=== PATIENT | female | born 1985 | race Caucasian/White ===

== ENCOUNTER → 2017-10-09 07:57 | Outpatient (POV) | payer BC, SELFPAY | PROVIDERS: Family Provider Family Medicine; PCP Nurse Practitioner Obstetrics & Gynecology; Visit Provider Dentist | DX: Z00.00 Encounter for general adult medical examination without abnormal findings (principal) ==

== ENCOUNTER → 2018-02-09 11:04 | Outpatient (CLI) | payer BC, SELFPAY ==
--- NOTE | 2018-02-09 11:12 | XR_ITS ---
XR chest 2V HISTORY: ITS.REASON: PALPITATIONS ORDERING PHYSICIAN: Anayeli Worthington PATIENT AGE: 32 years COMPARISON: None FINDINGS: The cardiomediastinal silhouette and pulmonary vascularity are within normal limits. The lungs are clear without infiltrates, suspicious nodules, or pleural effusions. No acute bony abnormalities. IMPRESSION: Negative chest, no acute finding
== END ==
PROVIDERS: PCP Family Medicine; Visit Provider Nurse Practitioner Family
DX: R00.2 Palpitations (principal); R55 Syncope and collapse
CPT/HCPCS: 71046; 93005; 93225; 93226

== ENCOUNTER → 2018-02-13 07:13 | Outpatient (CLI) | payer BC, SELFPAY ==
--- NOTE | 2018-02-13 | CA_ITS ---
PROCEDURE: 2-D M-mode and color Doppler study INDICATIONS FOR THE TEST: Chest pain+ COPD Heart Murmur Tobacco Smoking+ Palpitations Fatigue Syncope+ Edema Hypertension+Diabetes Mellitus Rheumatic Fever SOB VICK Obesity+Hyperlipidemia Family History HD+ Additional History PATIENT INFORMATION HEIGHT: 62 WEIGHT: 250 GENDER: Female B/P: 150/100 2-D/M-MODE INTERPRETATION: 2-D MEASUREMENTS OBSERVED VALUES IN CMS Right Ventricular Dimension (RVDd) 2.7 Interventricular Septum (Thickness)(IVsd) 1.0 Left Ventricular Internal Dimensions(LVIDd) 4.6 Left Ventricular Posterior Wall (Thickness)(LVPWd) 1.0 Aortic Root 2.5 Aortic Cusp Separation 2.0 Left Atrial Dimensions (LAD) 3.6 2D 1. Left atrium is mildly enlarged, left ventricle is normal size, left ventricle wall thickness is upper limit of the normal, there is preserved left ventricular systolic function, visually estimated ejection fraction 55% with no obvious regional wall motion abnormality. 2. The right atrium and right ventricle are qualitatively mildly enlarged with normal contractility. 3. The aortic valve is minimally thickened and fibrosed. 4. The mitral and tricuspid valve are grossly normal. 5. The pulmonic valve is poorly visualized. 6. No significant pericardial effusion noted. DOPPLER INTERROGATION: Doppler interrogation of the aortic, mitral and tricuspid valvular presence of mild mitral and tricuspid regurgitation, tricuspid regurgitation jet velocity is insufficient for calculation of the right ventricular systolic pressure, grade 1 diastolic dysfunction seen with tissue Doppler evidence of raised left atrial pressure. CONCLUSION: 1. Mild biatrial enlargement, normal left ventricular size, visually estimated ejection fraction 55% with no obvious regional wall motion abnormality, grade 1 diastolic dysfunction seen with tissue Doppler evidence of raised left atrial pressure. 2. Mildly enlarged right ventricle with normal contractility. 3. Mild mitral and tricuspid regurgitation 4. No significant pericardial effusion noted.
--- NOTE | 2018-02-13 07:18 | NM_ITS ---
History and Indications: Hypertension, tobacco use, family history, chest pain, palpitation and fatigue Procedure: Patient exercised on Steve protocol 8 minutes and 20 seconds, resting heart rate was 68 bpm resting blood pressure 156/91, with exercise maximum heart rate achieved was 1 minute which is greater than 85% of the maximum predicted heart rate and a blood pressure was 190/86. Test was started due to shortness of breath and fatigue patient denied any complained of chest pain. Patient has good exercise capacity achieved 10.1mets of workload on treadmill, the blood pressure response to exercise was adequate. Electrocardiogram: Resting echocardiogram showed sinus rhythm nonspecific ST-T changes, with exercise there is less than 1.[address] segment depression noted from the baseline EKG. The EKG portion of the exercise Myoview is negative for ischemia. Cardiac stress and resting SPECT images: Cardiac stress and resting SPECT images were obtained using technetium 99 Myoview 32.7 mCi at stress and 9.9 mCi at rest. Gated SPECT further analysis of segmental wall motion and calculation of the ejection fraction also done. Cardiac stress and rest images show uniform myocardial activity without any segmental perfusion abnormality, computer derived ejection fraction is 60% with no obvious regional wall motion abnormality, right ventricle is normal size and contractility. Conclusion: 1. The EKG portion of the exercise Myoview is negative for ischemia. Patient has good exercise capacity achieved 10.1mets of workload on treadmill, the blood pressure response to exercise was adequate, there was no exercise-induced chest discomfort. 2. No obvious scintigraphic evidence of reversible ischemia seen, computer derived ejection fraction is 60% with no regional wall motion abnormality, right ventricle is normal size and contractility. 3. Normal exercise Myoview study.
== END ==
PROVIDERS: Family Provider Family Medicine; PCP Family Medicine; Visit Provider Family Medicine
DX: R55 Syncope and collapse (principal); R00.2 Palpitations
CPT/HCPCS: 78452; 93017; 93306; A9502

== ENCOUNTER → 2020-07-12 12:09 | Outpatient (CLI) | payer BC, SELFPAY ==
[2020-07-14 10:12] LABS: Hep A Ab, IgM Negative (Negative); Hepatitis B Core Antibody IgM Negative (Negative); Hepatitis B Surface Antigen Negative (Negative)
[2020-07-14 10:40] LABS: HIV Screen 4th Generation wRfx Non Reactive (Non Reactive); Hepatitis C Antibody <0.1 s/co ratio (0.0-0.9); Rapid Plasma Reagin Ab Titer Non Reactive (NonRea<1:1)
[2020-07-14 10:41] LABS: HSV 2 IgG, Type Spec <0.91 index (0.00-0.90)
== END ==
PROVIDERS: Visit Provider Nurse Practitioner Obstetrics & Gynecology
DX: Z72.51 High risk heterosexual behavior (principal)
CPT/HCPCS: 36415; 80074; 86592; 86695; 86703; 86790; G0432

== ENCOUNTER → 2020-11-14 11:53 | Outpatient (CLI) | payer OTHER, SELFPAY ==
[2020-11-14 12:21] LABS: Basophils % 0.2 % (0.1-2.0); Eosinophils # 0.3 K/mm3 (0.0-0.4); Eosinophils % 3.6 % (0.1-12.0); Hemoglobin 13.7 g/dL (12.2-16.2); Lymphocytes # 2.1 K/mm3 (0.7-4.5); Mean Corpuscular HGB Conc 33.5 g/dL (31.8-35.4); Mean Corpuscular Hemoglobin 27.9 pg (27.0-31.2); Mean Corpuscular Volume 83.1 fl (81-99); Mean Platelet Volume 7.9 fl (7.4-10.4); Monocytes # 0.5 K/mm3 (0.1-1.0); Monocytes % 5.4 % (1.7-9.3); Neutrophils # 5.6 K/mm3 (1.8-7.8); Neutrophils % 65.7 % (37.0-80.0); Platelet Count 375 K/mm3 (142-424); Red Blood Count 4.93 M/mm3 (4.20-5.40); Red Cell Distribution Width 14.5 % (11.5-17.5); White Blood Count 8.6 K/mm3 (4.8-10.8)
--- NOTE | 2020-11-14 12:50 | CA_ITS ---
APPROVED REPORT EXAM: Comprehensive 2D, Doppler, and color-flow Echocardiogram [employer] Age [employer] Teacher: Anita Carrera RT(R) Ht: 5 ft 2 in Wt: 257lbs BSA: 2.13 BP: 140/96 mmHg Indications: SOA, ex smoker, HTN, preop clearance 2D Dimensions LVOT 2.06 cm (M/F) 1.5-2.5 LA Volume 23.30 mL LA Volume Index 10.99 mL/m2 (M/F) 16-34 M-Mode Dimensions RVDd 2.62 cm (0.9-2.6) LA Diam 3.74 cm (1.9-4.0) LVDd 4.44 cm (3.5-5.7) Ao Diam 2.71 cm (2.0-3.7) LVDs 3.34 cm (3.5-5.7) IVSd 0.87 cm (0.6-1.1) PWd 0.99 cm (0.6-1.1) EF (Teich) 49.30% FS 24.80% EDV (Teich) 89.60 mL ESV (Teich) 45.40 mL LV Diastology E Decel Time 163.00 (160-240 msec) E/A Ratio 1.7 MED E' 11.10 (< 7 cm/sec) E'/MED E' Ratio 10.73 (>14) LAT E' 14.50 (<10 cm/sec) E/LAT E' Ratio 8.21 (>14) Mitral Valve MV E Max Nicholas. 119.00 (40-130 cm/s) MV A Velocity 69.00 (40-130 cm/s) E/A Ratio 1.71 MV Decel. Time 163.00 (160-240 ms) MV PHT 48.00 ms Tricuspid Valve TR P. Velocity 138.00 cm/s Left Ventricle Left atrium is normal size, left ventricle is normal size, there is no concentric left ventricular hypertrophy, visually estimated ejection fraction 55% with no regional wall motion abnormality, diastolic parameters are within normal range. Right Ventricle Right atrium and right ventricle are normal size and contractility. Aortic Valve Aortic valve is grossly normal, there is no aortic stenosis or aortic insufficiency. Mitral Valve Mitral valve is grossly normal, there is trace mitral regurgitation. Tricuspid Valve Tricuspid valve grossly normal, there is trace tricuspid regurgitation, tricuspid regurgitation jet velocity is inadequate for calculation of the right ventricular systolic pressure. Pulmonic Valve Pulmonic valve is poorly visualized. Great Vessels Aortic root is normal size. Pericardium No significant pericardial effusion noted. Conclusion 1. Normal left ventricular size, preserved left ventricular systolic function, visually estimated ejection fraction 55% with no regional wall motion abnormality, diastolic parameters are within normal range. 2. Trace mitral and tricuspid regurgitation. 3. No significant pericardial effusion noted. Electronically signed by : Dayo Vuong, 11/14/2020 18:46:31
[2020-11-14 13:09] LABS: Hemoglobin A1C 5.1 % (4.0-6.0)
[2020-11-14 13:28] LABS: Alanine Aminotransferase 19 U/L (12-78); Albumin Level 4.5 g/dl (3.5-5.0); Albumin/Globulin Ratio 1.5 (1.1-1.8); Alkaline Phosphatase 51 U/L (38-126); Anion Gap 11.4 mEq/L (5-15); Aspartate Amino Transferase 24 U/L (14-36); Bilirubin,Total 0.5 mg/dl (0.2-1.3); Blood Urea Nitrogen 15 mg/dl (7-17); Calcium 9.3 mg/dl (8.4-10.2); Carbon Dioxide 27 mmol/L (22.0-30.0); Chloride 107 mmol/L (98-107); Chol/HDL Ratio 3.9 (1-3.5); Cholesterol 185 mg/dl (140-200); Estimated Glomerular Filt Rate 82 ml/min (>60); GFR (African American) 99 ML/MIN (>60); Glucose 100 mg/dl (74-100); HDL Cholesterol 48 mg/dl (40-60); Potassium 4.4 mmoL/L (3.5-5.1); Sodium 141 mmol/L (136-145); Total Protein,Serum 7.5 g/dl (6.3-8.2); Triglycerides 70 mg/dl (30-150); VLDL Cholesterol 14 mg/dL (0-40)
[2020-11-14 13:39] LABS: Direct LDL Cholesterol 109.91 mg/dL (100-129)
[2020-11-14 13:45] LABS: Free Thyroxine Index 3.5 ug/dL (5.93-13.13); Triiodothryronine (T3) Uptake 32 % (23.5-40.5)
[2020-11-14 13:58] LABS: Thyroid Stimulating Hormone 0.68 uIU/mL (0.465-4.68)
== END ==
PROVIDERS: PCP Family Medicine; Visit Provider Nurse Practitioner Family
DX: Z01.810 Encounter for preprocedural cardiovascular examination (principal); R06.02 Shortness of breath; I10 Essential (primary) hypertension
CPT/HCPCS: 36415; 80053; 80061; 83036; 84436; 84443; 84479; 85025; 93306

== ENCOUNTER → 2020-11-22 11:13 | Outpatient (CLI) | payer OTHER, SELFPAY ==
--- NOTE | 2020-11-22 11:13 | XR_ITS ---
PROCEDURE: XR CHEST 2V CLINICAL HISTORY: Dyspnea COMPARISON: CR CXR2V XR chest 2V from 02/09/2018 FINDINGS: The cardiomediastinal silhouette and pulmonary vascularity are within normal limits. The lungs are clear without infiltrates, suspicious nodules, or pleural effusions. Stable 5 mm nodular opacity is present in the left perihilar region. The remaining lungs are clear. On the lateral view there is a nodular opacity overlying T7 vertebral body which may correspond to the perihilar nodular density on the left. No acute bony findings. IMPRESSION: No acute findings. Dictated by: Tyler Trimble MD 11/22/2020 11:30 Tyler Trimble MD in [place] 11/22/2020 11:30
== END ==
PROVIDERS: PCP Family Medicine; Visit Provider Internal Medicine Pulmonary Disease
DX: R06.00 Dyspnea, unspecified (principal)
CPT/HCPCS: 71046

== ENCOUNTER → 2020-12-18 09:52 | Outpatient (CLI) | payer OTHER, SELFPAY ==
[2020-12-18 10:45] VITALS: PULSE 60; PULSE 61
== END ==
PROVIDERS: PCP Family Medicine; Visit Provider Internal Medicine Pulmonary Disease
DX: R06.00 Dyspnea, unspecified (principal)
CPT/HCPCS: 94060; 94618; 94640; 94726; 94729

== ENCOUNTER → 2021-04-09 15:43 | Outpatient (CLI) | payer OTHER, SELFPAY ==
--- NOTE | 2021-04-09 15:44 | US_ITS ---
PROCEDURE: US TRANSVAGINAL CLINICAL INDICATION: Heavy bleeding with irregular periods COMPARISON: No exams were available for comparison FINDINGS: There are several small nabothian cysts in the cervix. The uterus is normal in size and shows homogeneous echogenicity except for a small hypoechoic lesion near the fundus measuring 0.8 x 0.5 by 0.8 cm with faint homogeneous internal echoes likely a fibroid. The endometrial echo appears normal. Both ovaries are normal in size, there is a dominant cyst left ovary measuring 2.6 x 1 point by 1.4 cm. The right ovary appears normal. There is no cul-de-sac fluid. IMPRESSION: Several nabothian cysts in the cervix and probable functional cyst right ovary and likely small myometrial fibroid Dictated by: Dr. Srinath Luna MD 04/11/2021 08:39 Dr. Srinath Luna MD in [place] 04/11/2021 08:39
== END ==
PROVIDERS: PCP Family Medicine; Visit Provider Nurse Practitioner Obstetrics & Gynecology
DX: N92.1 Excessive and frequent menstruation with irregular cycle (principal)
CPT/HCPCS: 76830

== ENCOUNTER → 2021-04-28 10:05 | Outpatient (CLI) | payer OTHER, SELFPAY | PROVIDERS: Visit Provider Nurse Practitioner Obstetrics & Gynecology | DX: Z20.822 Contact with and (suspected) exposure to COVID-19 (principal) | CPT/HCPCS: C9803; U0003; U0005 ==

== ENCOUNTER 2021-04-30 06:03 | Day surgery (SDC) | payer OTHER, SELFPAY ==
[2021-04-24 14:24] VITALS: BMI 41.4
[2021-04-30] VITALS (10 sets, daily range): BP systolic 107–140; BP diastolic 65–86; PULSE 70–97; RESP 12–18; TEMP 36.4–38; O2SAT 93–97
[2021-04-30 06:29] LABS: Urine Pregnancy, HCG Qual. Negative (Negative)
[2021-04-30 06:42] LABS: Basophils % 0.3 % (0.1-2.0); Eosinophils # 0.2 K/mm3 (0.0-0.4); Eosinophils % 2.4 % (0.1-12.0); Hematocrit 42.1 % (37.0-47.0); Hemoglobin 13.9 g/dL (12.2-16.2); Lymphocytes # 1.9 K/mm3 (0.7-4.5); Lymphocytes % 22.3 % (10-50); Mean Corpuscular HGB Conc 32.9 g/dL (31.8-35.4); Mean Corpuscular Volume 85.1 fl (81-99); Mean Platelet Volume 9.5 fl (7.4-10.4); Monocytes # 0.5 K/mm3 (0.1-1.0); Monocytes % 5.5 % (1.7-9.3); Neutrophils # 5.9 K/mm3 (1.8-7.8); Neutrophils % 69.5 % (37.0-80.0); Platelet Count 331 K/mm3 (142-424); Red Blood Count 4.95 M/mm3 (4.20-5.40); White Blood Count 8.5 K/mm3 (4.8-10.8)
[2021-04-30 06:49] LABS: Anion Gap 9.6 mEq/L (5-15); Blood Urea Nitrogen 12 mg/dl (7-17); Calcium 9.8 mg/dl (8.4-10.2); Carbon Dioxide 28 mmol/L (22.0-30.0); Chloride 106 mmol/L (98-107); Creatinine Clearance Estimated 80 mL/min (50-200); Estimated Glomerular Filt Rate 81 ml/min (>60); GFR (African American) 98 ML/MIN (>60); Glucose 115 mg/dl (74-100); Potassium 3.6 mmoL/L (3.5-5.1); Sodium 140 mmol/L (136-145)
--- NOTE | 2021-04-30 06:59 | HMH.ANESCL ---
[facility] Anesthesia Checklist - Patient Identification Patient Identification: Arm Band, Verbal (Name & ) - Structural Data Admitted From: Home Planned Operative Procedure/s: Hysteroscopy D&C Consent for Planned Operative Procedure(s) Verified: Yes Verified Documents: Surgical Consent - NPO Status Verified Time NPO: 00:00 - Chart Verification Results Verified: CBC, HCG - Additional verifications Anesthesia Reactions: No Hx Blood Transfusions: No Blood Transfusion Reaction: No - Cardiovascular Assessment Heart Sounds: S1 & S2 - Airway Assessment C-Spine Mobility Assessed: Yes TMJ Mobility Assessed: Yes Dentition: Good Dentition - Neurological Assessment Level of Consciousness: Awake, Alert, Appropriate - Anesthesia Plan ASA Class: II Anesthesia Type: General [facility] History I have reviewed the patient's past medical history: Yes Medical History: Reports:: Depression, Hypertension Denies:: Cancer, Diabetes Mellitus Type 1, Diabetes Mellitus Type 2, Internal Pacemaker, MRSA, Seizures *Have you ever received a pneumonia vaccine?: No *Have you received a flu vaccine this season?: No Other Medical History: Denies: Blood Transfusion Reaction Anesthesia experience/problems:: none Laterality Cases: Bilateral: Tonsillectomy, Other Other Surgeries: Yes: Cholecystectomy, , Tubal Ligation, Other. No: Pacemaker Amputation: No Fractures: No - *Social History Last grade of school completed: High school graduate Smoking Status: Current every day smoker Tobacco Type: cigarettes # Packs/Day (cigarettes): 1 Alcohol Intake: current Alcohol Intake Frequency:: holidays/special occasions only Substance Use Type: denies use *Occupational Status:: employed Housing: house *Travel in the last 8 weeks: None - Psychiatric History Pschychiatric History:: Reports:: Depression Family Hx:: Diabetes, Hypertension
--- NOTE | 2021-04-30 08:05 | HMH.OPNOTE ---
Date of procedure: 04/30/21 Pre-op Diagnosis:: Menorrhagia Post-op Diagnosis:: Menorrhagia Procedure performed:: Hysteroscopy, dilation curettage, NovaSure ablation Surgeon:: Angel Tipton MD ORTHOPEDIC SHOE FITTER:: Chon Franklin Anesthesia: LMA Estimated blood loss (mL): 50 Clinical Note:: She is a 35-year-old lady who complains of extremely heavy periods. She has tried control pills. After having discussed the risks and benefits we elected perform a hysteroscopy, D&C and NovaSure ablation. Endometrial biopsy in my office was negative. Operative findings:: An anteverted somewhat bulky uterus. The uterus sounded to 9 cm. The width was 4 and the endometrial cavity length was 6.5 cm. The endometrial cavity appeared somewhat lush and she was on her period so it was irregular Operative note:: She was taken to the operating room where LMA anesthesia was found be adequate. She was prepped and draped in the normal sterile fashion in the lithotomy position. A weighted speculum was placed in the vagina and the anterior lip of the cervix was grasped with a tenaculum. The cervix was then dilated to approximately 6 mm. I then inserted a hysteroscope into the uterine cavity and the findings were as previously dictated. I then performed a gentle curettage with a medium curette. I then sounded the uterus and determine the length of the uterus. I then inserted the NovaSure device and determine the width of the endometrial cavity. The length of the cavity was 6.5 cm and the width was 4.3 cm. This was placed into the NovaSure device. I then ran the device through its program. I further inspected the endometrial cavity and was found to be completely charred. I then injected 30 cc of 0.5% ropivacaine at the 3:00, 5:00, 7:00, and 9:00 positions of the cervix. She tolerated procedure well and was taken to the recovery room in excellent condition. All sponge and instrument counts were correct. The estimated blood loss was less than 50 cc. Condition: stable Disposition: PACU Specimens:: Endometrial curettings Complications:: None
--- NOTE | 2021-04-30 08:10 | P.PN_ITS ---
[facility] Anesthesia Record Part I Intake, IV Amount: 500 Estimated blood loss (mL): 25 Urine output (mL): 0 Blood Pressure: 122/70 SaO2: 95 Pulse Rate: 73 Respiratory Rate: 12 Temperature: 99.2 F Patient is:: Awake, Stable Stable to PACU at:: 08:05
--- NOTE | 2021-05-02 20:01 | P.PN_ITS ---
[facility] Anesthesia Record Part II Discharge Time: 08:44 Destination: home PACU nurse assessment reviewed?: Yes Patient Condition:: Good Anesthesia Complications:: None none Swallowing reflex intact?: Yes Cyanosis?: No Blood Pressure: 115/65 Pulse Rate: 97 Temperature: 97.7 F Mental Status: Alert & Oriented Pain level:: 0 Nausea and/or vomitting:: None Intake, IV Amount: 0
[2021-05-02 20:02] VITALS: BP 115/65; PULSE 97; TEMP 36.5
== END 2021-04-30 09:01 | disposition home or self-care (01) ==
LOC: OR 06:04
PROVIDERS: PCP Family Medicine; Visit Provider Nurse Practitioner Obstetrics & Gynecology
PROC: 0U5B8ZZ Destruction of Endometrium, Via Natural or Artificial Opening Endoscopic (ICD-10-PCS; CPT 58563; principal; 2021-04-30 07:30)
DX: N92.1 Excessive and frequent menstruation with irregular cycle (principal); F32.9 Major depressive disorder, single episode, unspecified; I10 Essential (primary) hypertension; Z90.49 Acquired absence of other specified parts of digestive tract; Z83.3 Family history of diabetes mellitus; Z82.49 Family history of ischemic heart disease and other diseases of the circulatory system; Z88.0 Allergy status to penicillin; Z88.6 Allergy status to analgesic agent; Z91.018 Allergy to other foods; Z79.899 Other long term (current) drug therapy
CPT/HCPCS: 58563; 80048; 81025; 85025; 96374; J2405

== ENCOUNTER → 2022-08-08 14:41 | Outpatient (CLI) | payer OTHER, SELFPAY ==
--- NOTE | 2022-08-08 | XR_ITS ---
FINAL REPORT CLINICAL HISTORY: cough congestion soa COMPARISON: 11/22/2020 FINDINGS: Two views of the chest were obtained. The heart size and pulmonary vascularity are within normal limits. The mediastinum is normal. There is mild left opacity, which may represent atelectasis or pneumonia. Right lung bases clear. There is no pneumothorax. The bony thorax is intact. IMPRESSION: Mild left opacity, may represent atelectasis or pneumonia. Reviewed, Interpreted and Dictated by Karan Kahn III, MD Transcribed by Leydi Gomes Authenticated and . [facility]
== END ==
PROVIDERS: PCP Family Medicine; Visit Provider Physician Assistant
DX: J40 Bronchitis, not specified as acute or chronic (principal)
CPT/HCPCS: 71046

== ENCOUNTER → 2022-08-15 10:06 | Outpatient (CLI) | payer OTHER, SELFPAY ==
--- NOTE | 2022-08-15 | XR_ITS ---
FINAL REPORT CLINICAL HISTORY: PNEUMONIA vape COMPARISON: 08/08/2022 FINDINGS: PA and lateral views of the chest were obtained. The cardiac and mediastinal silhouettes are within normal limits. The lungs are clear. There is no pleural effusion or pneumothorax. No acute osseous abnormality is identified. IMPRESSION: No radiographic evidence of acute cardiac or pulmonary disease. Reviewed, Interpreted and Dictated by Marli Jacinto MD Transcribed by Leydi Gomes Authenticated and . [facility]
== END ==
PROVIDERS: PCP Family Medicine; Visit Provider Physician Assistant
DX: J18.9 Pneumonia, unspecified organism (principal)
CPT/HCPCS: 71046

== ENCOUNTER → 2022-09-30 11:57 | Outpatient (CLI) | payer OTHER, SELFPAY ==
--- NOTE | 2022-09-30 12:22 | ECG_ITS ---
APPROVED REPORT Exam: Resting ECG HR:53 bpm ECG Measurements Heart Rate 53 AXES CO 161 P 39 QRSd 88 QRS 60 QT 457 T 7 QTc 439 Conclusion SINUS BRADYCARDIA WITH SINUS ARRHYTHMIA BORDERLINE ECG UNCONFIRMED REPORT Electronically signed by : Lg Olmos MD 09/30/2022 20:29:37
[2022-09-30 12:52] LABS: Basophils % 0.5 % (0.1-2.0); Eosinophils # 0.2 K/mm3 (0.0-0.4); Eosinophils % 3.3 % (0.1-12.0); Hematocrit 46.4 % (37.0-47.0); Hemoglobin 15.4 g/dL (12.2-16.2); Lymphocytes # 2.6 K/mm3 (0.7-4.5); Lymphocytes % 35.1 % (10-50); Mean Corpuscular HGB Conc 33.3 g/dL (31.8-35.4); Mean Corpuscular Hemoglobin 29.6 pg (27.0-31.2); Mean Platelet Volume 8.4 fl (7.4-10.4); Monocytes # 0.5 K/mm3 (0.1-1.0); Monocytes % 6.2 % (1.7-9.3); Neutrophils % 54.9 % (37.0-80.0); Platelet Count 372 K/mm3 (142-424); Red Blood Count 5.21 M/mm3 (4.20-5.40); Red Cell Distribution Width 13.9 % (11.5-17.5); White Blood Count 7.3 K/mm3 (4.8-10.8)
[2022-09-30 13:03] LABS: Hemoglobin A1C 5.2 % (4.0-6.0)
[2022-09-30 13:14] LABS: Chloride 103 mmol/L (98-107); Potassium 4.3 mmoL/L (3.5-5.1); Sodium 141 mmol/L (136-145)
[2022-09-30 13:16] LABS: Blood Urea Nitrogen 9 mg/dl (7-17); Estimated Glomerular Filt Rate 81 ml/min (>60); GFR (African American) 98 ML/MIN (>60)
[2022-09-30 13:17] LABS: Alanine Aminotransferase 27 U/L (12-78); Albumin Level 4.4 g/dl (3.5-5.0); Albumin/Globulin Ratio 1.4 (1.1-1.8); Alkaline Phosphatase 50 U/L (38-126); Anion Gap 13.3 mEq/L (5-15); Aspartate Amino Transferase 24 U/L (14-36); Bilirubin,Total 0.5 mg/dl (0.2-1.3); Calcium 8.8 mg/dl (8.4-10.2); Carbon Dioxide 29 mmol/L (22.0-30.0); Cholesterol 190 mg/dl (140-200); Globulin 3.1 g/dL (1.3-3.2); Glucose 89 mg/dl (74-100); Iron 70 ug/dL (37-170); Total Protein,Serum 7.5 g/dl (6.3-8.2); Triglycerides 91 mg/dl (30-150); VLDL Cholesterol 18 mg/dL (0-40)
[2022-09-30 13:18] LABS: Chol/HDL Ratio 3.6 (1-3.5); HDL Cholesterol 53 mg/dl (40-60)
[2022-09-30 13:29] LABS: Direct LDL Cholesterol 100.52 mg/dL (100-129); Intact Parathyroid Hormone 90.5 pg/mL (7.5-53.5)
[2022-09-30 13:35] LABS: 25-OH Vitamin D, Total 18.8 ng/mL (30-100)
[2022-09-30 13:42] LABS: Total Iron Binding Capacity 317 ug/dL (265-497)
[2022-09-30 13:49] LABS: Thyroid Stimulating Hormone 1.12 uIU/mL (0.465-4.68)
[2022-10-03 12:52] LABS: Ferritin 38.9 ng/ml (6.24-137)
[2022-10-03 23:51] LABS: Methylmalonic Acid 137 nmol/L (0-378)
[2022-10-04 17:32] LABS: Vitamin B1 134.6 nmol/L (66.5-200.0); Vitamin E Alpha Tocopherol 9.8 mg/L (5.9-19.4); Vitamin E Gamma Tocopherol 1.9 mg/L (0.7-4.9)
== END ==
PROVIDERS: PCP Family Medicine; Visit Provider Nurse Practitioner Family
DX: E66.9 Obesity, unspecified (principal); Z68.41 Body mass index [BMI] 40.0-44.9, adult
CPT/HCPCS: 36415; 80053; 80061; 82131; 82306; 82728; 82746; 83036; 83540; 83550; 83970; 84425; 84443; 84446; 84590; 85025; 93005

== ENCOUNTER 2025-01-17 10:48 | Outpatient (CLI) | payer OTHER, SELFPAY ==
--- OUTSIDE RECORDS SUMMARY | 2025-01-17 10:50 | XMS_ITS | Clinical Summary ---
Author Organization [employer] ([place], [place], [place], [place]) Address [address] [place] [address] Care Team Providers Care Marketing Professional Name Role Phone Unavailable Primary Care Provider Unavailabl e Social History Tobacco Use Types Packs/Day Years Used Date Smoking Tobacco: Never Assessed Food Insecurity Answer Date Recorded Food run out past 12 months Not on file 02/2024 Food did not last past 12 months Not on file 01/23/2024 Employment Answer Date Recorded Help finding and keeping a job Not on file 0 01/23/2024 Family and Community Support Answer Nolan e Recorded Help with Day to Day Activities Not on file 01/23/2024 Feeling Lonely or Isolated Not on file 01/22 Educational Attainment Answer Date Osman rded Speak language other than Emirati at home Not on file 01/23/2024 Want help with school or training Not on file 01/23/2024 Substance Use Answer Date Recorded Used prescription meds for non-medical reasons N ot on file 01/23/2024 Used illegal drugs past 12 months Not on file 01/23/2024 Comments Unknown Sex and Gender Information Value Date Recorded Sex Assigned at Not on file Legal Sex Female 12:26 PM CDT Gender Identity Not on file Sexual Orientation Not on file Plan of Treatment Health Maintenance Due Date Last Done Comments Depression Screening (12+) 1996 Tobacco Cessation Counseling and Screening (12+) 1996 HIV Screening 11/26/1999 Hepatitis C Screening 2002 DTAP/TDAP/TD VACCINES (1 - Tdap) 11/26/2003 Pap Smear 2005 COVID-19 VACCINE ( - 2023-2 5 season) 2024 Breast Cancer Screening 2024 Influenza Vaccine (#1) 2025 Pneumococcal Vaccine: 0-49 Years Aged Out No longer eligible based on patient's age to complete this topic Insurance AETNA [facility]
--- OUTSIDE RECORDS SUMMARY | 2025-01-17 10:50 | XMS_ITS | Referral Summary ---
Author Organization [employer] ([place], [place]) Address [address] [place] [address] Care Team Providers Care Truck Service Manager Name Role Phone Unavailable Primary Care Provider [...] Date Osman rded Speak language other than Kyrgyz at home Not on file 01/23/2024 Want [...] Orientation Not on file Plan of Treatment Not on file Insurance AETNA [facility]
--- OUTSIDE RECORDS SUMMARY | 2025-01-17 10:50 | XMS_ITS | Encounter Summary ---
Author Organization [employer] ([place], [place], [place], [place]) Address [address] [place] [address] Care Team Providers Care Surety Bond Agent Name Role Phone Unavailable Primary Care Provider Unavailabl e Reason for Referral * Consultation (Routine) - Canceled Specialty Diagnoses / Procedures Referred By Dwayne t Referred To Contact Behavioral Health Diagnoses ADD (attention deficit disorder) without hyperactivity Eugenia Rocha APRN [address] [place] [address] Phone: tel: Leydi Abdalla, [place] [address] [place] [address] Phone: tel: fax: Referral ID Status Reason Start Date Expiration Date Visits Requested Visits Authorized [id number] Canceled Specialty Services Required 01/23/2024 01/22/2025 1 1 Encounter Details Date Type Department Care Team (Late st Contact Info) Description 01/23/2024 Outside Orders [facility] Central Scheduling [address] [place] [address] Eugenia Rocha APRN [address] [place] [address] ADD (attention deficit disorder) without hyperactivity (Primary Dx) Social History Tobacco Use Types Packs/Day Years [...] Date Osman rded Speak language other than Russian at home Not on file 01/23/2024 Want [...] on file Sexual Orientation Not on file documented as of this encounter Plan of Treatment Scheduled Referrals Name Type Priority Associated Diagnoses Orde r Schedule Ambulatory referral to Behavioral Health Outpatient Referral Routine ADD (attention deficit disorder) without hyperactivity Expected: 01/23/2024, Expires: 01/22/2025 documented as of this encounter Visit Diagnoses Diagnosis ADD (attention deficit disorder) without hyperactivity- Primary Attention deficit disorder without mention of hyperactivity documented in this encounter
[2025-01-17 12:49] LABS: Hepatitis C Ab Qual. W/ RFX NEGATIVE (Negative)
[2025-01-17 14:25] LABS: RPR W/RFX Titers Nonreactive (Nonreactive)
[2025-01-18 07:14] LABS: Hepatitis B Surface Antigen Negative (Negative)
[2025-01-19 17:14] LABS: HSV-1 DNA Negative (Negative); HSV-2 DNA Negative (Negative)
[2025-01-20 13:44] LABS: Bacterial Vaginosis Associated 0
== END 2025-01-17 23:59 | disposition home or self-care (01) ==
PROVIDERS: PCP Family Medicine; Visit Provider Nurse Practitioner Obstetrics & Gynecology
DX: N89.8 Other specified noninflammatory disorders of vagina (principal); Z72.51 High risk heterosexual behavior
CPT/HCPCS: 36415; 86592; 86803; 87340; 87389; 87529; 87798; 87801

== ENCOUNTER 2025-01-26 09:33 | Outpatient (CLI) | payer OTHER, SELFPAY ==
--- OUTSIDE RECORDS SUMMARY | 2025-01-26 09:39 | XMS_ITS | Encounter Summary ---
Author Organization [employer] ([place], [place], [place], [place]) Address [address] [place] [address] Care Team Providers Care Technical Support Agent Name Role Phone Unavailable Primary Care Provider Unavailabl e Encounter Details Date Type Department Care Team (Late st Contact Info) Description 01/23/2024 Outside Orders [facility] Central Scheduling [address] [place] [address] Eugenia Rocha APRN [address] [place] [address] ADD (attention deficit disorder) without [...] Date Osman rded Speak language other than Palestinian at home Not on file 01/23/2024 Want [...] as of this encounter Plan of Treatment Not on file documented as of this encounter Visit Diagnoses Diagnosis ADD (attention deficit disorder) without hyperactivity- Primary Attention deficit disorder without mention of hyperactivity documented in this encounter
--- OUTSIDE RECORDS SUMMARY | 2025-01-26 09:39 | XMS_ITS | Clinical Summary ---
Author Organization [employer] ([place], [place], [place], [place]) Address [address] [place] [address] Care Team Providers Care Smt Technician Name Role Phone Unavailable Primary Care Provider [...] Date Osman rded Speak language other than British Virgin Islander at home Not on file 01/23/2024 Want [...] age to complete this topic Insurance AETNA [facility]
--- OUTSIDE RECORDS SUMMARY | 2025-01-26 09:39 | XMS_ITS | Referral Summary ---
Author Organization [employer] ([place], [place], [place], [place]) Address [address] [place] [address] Care Team Providers Care Lead Clinical Research Coordinator Name Role Phone Unavailable Primary Care Provider [...] Date Osman rded Speak language other than Azerbaijani at home Not on file 01/23/2024 Want [...] of Treatment Not on file Insurance AETNA [facility]
[2025-01-26 10:07] LABS: Hematocrit 44.5 % (37.0-47.0); Hemoglobin 15.0 g/dL (12.2-16.2); Immature Granulocytes % 0.4 %; Mean Corpuscular HGB Conc 33.7 g/dL (31.8-35.4); Mean Corpuscular Hemoglobin 31.1 pg (27.0-31.2); Mean Corpuscular Volume 92.3 fl (81-99); Nucleated Red Blood Cells % 0 %; Platelet Count 337 K/mm3 (142-424); Red Blood Count 4.82 M/mm3 (4.20-5.40); Red Cell Distribution Width-SD 45.6 fL; White Blood Count 9.9 K/mm3 (4.8-10.8)
[2025-01-26 10:49] LABS: Albumin Level 4.2 g/dl (3.5-5.0); Chloride 103 mmol/L (98-107); Sodium 140 mmol/L (136-145)
[2025-01-26 10:50] LABS: Potassium 4.4 mmoL/L (3.5-5.1)
[2025-01-26 10:52] LABS: Alanine Aminotransferase 16 U/L (12-78); Albumin/Globulin Ratio 1.6 (1.1-1.8); Anion Gap 12.4 mEq/L (5-15); Aspartate Amino Transferase 24 U/L (14-36); Blood Urea Nitrogen 11 mg/dl (7-17); Carbon Dioxide 29 mmol/L (22.0-30.0); Creatinine,Serum 0.70 mg/dl (0.52-1.04); Estimated Glomerular Filt Rate 93 ml/min (>60); GFR (African American) 112 ML/MIN (>60); Globulin 2.7 g/dL (1.3-3.2); Total Protein,Serum 6.9 g/dl (6.3-8.2)
[2025-01-26 10:53] LABS: Alkaline Phosphatase 50 U/L (38-126); Bilirubin,Total 0.7 mg/dl (0.2-1.3); Calcium 9.4 mg/dl (8.4-10.2); Cholesterol 166 mg/dl (140-200); Glucose 94 mg/dl (74-100); HDL Cholesterol 62 mg/dl (40-60); Triglycerides 61 mg/dl (30-150)
[2025-01-26 11:15] LABS: 25-OH Vitamin D, Total 24.3 ng/mL (30-100)
== END 2025-01-26 23:59 | disposition home or self-care (01) ==
LOC: LAB 09:34
PROVIDERS: PCP Family Medicine; Visit Provider Nurse Practitioner Obstetrics & Gynecology
DX: Z01.419 Encounter for gynecological examination (general) (routine) without abnormal findings (principal); I10 Essential (primary) hypertension
CPT/HCPCS: 36415; 80053; 80061; 82306; 85025

== ENCOUNTER 2025-01-31 12:27 | Outpatient (CLI) | payer OTHER, SELFPAY ==
--- OUTSIDE RECORDS SUMMARY | 2025-01-31 12:31 | XMS_ITS | Encounter Summary ---
Author Organization [employer] ([place], [place], [place], [place]) Address [address] [place] [address] Care Team Providers Care Equipment Operator [employer] Name Role Phone Unavailable Primary Care Provider Unavailabl e Encounter Details Date Type Department Care Team (Late st Contact Info) Description 01/23/2024 Outside Orders [facility] Central Scheduling [address] [place] [address] Eugenia Rocha APRN [address] [place] [address] ADD (attention deficit disorder) without [...] Date Osman rded Speak language other than Iranian at home Not on file 01/23/2024 Want [...]
--- OUTSIDE RECORDS SUMMARY | 2025-01-31 12:31 | XMS_ITS | Clinical Summary ---
Author Organization [employer] ([place], [place], [place], [place]) Address [address] [place] [address] Care Team Providers Care Teamcenter Consultant Name Role Phone Unavailable Primary Care Provider [...] Date Osman rded Speak language other than Belizean at home Not on file 01/23/2024 Want [...] of Treatment Not on file Insurance [facility]ETNA [facility]
--- NOTE | 2025-01-31 12:55 | MM_ITS ---
PROCEDURE INFORMATION: Exam: Bilateral Diagnostic Breast Tomosynthesis Radiologist Consultation Exam date and time: 01/31/2025 12:56 PM Age: 39 years old Clinical indication: Bilateral breast palpable lumps; Additional info: Routine screening/ lumps in breasts. Patient wanted this read lizeth , she has an appt with surgeon on fri to discuss results. The area marked on left breast with a mole marker is a small skin cyst. Patient said doctor felt multiple areas in each breast during exam, no distinct mass , just multiple lumps TECHNIQUE: Imaging protocol: Bilateral Diagnostic tomosynthesis and 2D mammography including computer-aided detection (CAD) when performed. Unilateral or bilateral exam. This study was interpreted in real time.The patient received the results. COMPARISON: No relevant prior studies available. FINDINGS: MAMMOGRAPHY: Breast composition: The breasts are almost entirely fatty. Breast mammogram findings: There is no stellate mass, architectural distortion or suspicious microcalcifications in either breast to suggest malignancy. No skin thickening or axillary adenopathy. IMPRESSION: Patient to return for targeted sonography over bilateral palpable abnormalities ASSESSMENT: BI-RADS Category 0: Incomplete- Need Additional Imaging Evaluation
== END 2025-01-31 23:59 | disposition home or self-care (01) ==
LOC: RAD 12:27
PROVIDERS: PCP Family Medicine; Visit Provider Nurse Practitioner Obstetrics & Gynecology
DX: Z12.31 Encounter for screening mammogram for malignant neoplasm of breast (principal); N63.10 Unspecified lump in the right breast, unspecified quadrant; N63.20 Unspecified lump in the left breast, unspecified quadrant; R92.313 Mammographic fatty tissue density, bilateral breasts
CPT/HCPCS: 77062; 77066; G0279

== ENCOUNTER 2025-02-07 08:50 | Outpatient (CLI) | payer OTHER, SELFPAY ==
--- OUTSIDE RECORDS SUMMARY | 2025-02-07 09:03 | XMS_ITS | Encounter Summary ---
Author Organization [employer] ([place], [place], [place], [place]) Address [address] [place] [address] Care Team Providers Care Cutter First Name Role Phone Unavailable Primary Care Provider Unavailabl e Encounter Details Date Type Department Care Team (Late st Contact Info) Description 01/23/2024 Outside Orders [facility] Central Scheduling [address] [place] [address] Eugenia Rocha APRN [address] [place] [address] ADD (attention deficit disorder) without [...] Date Osman rded Speak language other than Bhutanese at home Not on file 01/23/2024 Want [...]
--- OUTSIDE RECORDS SUMMARY | 2025-02-07 09:03 | XMS_ITS | Referral Summary ---
Author Organization [employer] ([place], [place], [place], [place]) Address [address] [place] [address] Care Team Providers Care Performance Reporter Name Role Phone Unavailable Primary Care Provider [...] Date Osman rded Speak language other than Malawian at home Not on file 01/23/2024 Want [...] of Treatment Not on file Insurance AETNA [facility]
--- OUTSIDE RECORDS SUMMARY | 2025-02-07 09:03 | XMS_ITS | Clinical Summary ---
Author Organization [employer] ([place], [place], [place], [place]) Address [address] [place] [address] Care Team Providers Care Teacher Education Director Name Role Phone Unavailable Primary Care Provider [...] Date Osman rded Speak language other than [place] at home Not on file 01/23/2024 Want [...] of Treatment Not on file Insurance AETNA [facility]
== END 2025-02-07 23:59 ==
LOC: RAD 08:50
PROVIDERS: PCP Family Medicine; Visit Provider Surgery
DX: N60.02 Solitary cyst of left breast (principal)
CPT/HCPCS: 76641

== ENCOUNTER 2025-02-15 09:53 | Outpatient (CLI) | payer OTHER, SELFPAY ==
[2025-02-15 07:46] VITALS: BMI 33.5
--- OUTSIDE RECORDS SUMMARY | 2025-02-15 10:27 | XMS_ITS | Clinical Summary ---
Author Organization [employer] ([place], [place], [place], [place]) Address [address] [place] [address] Care Team Providers Care Wheel Filler Name Role Phone Unavailable Primary Care Provider [...] Date Osman rded Speak language other than Cambodian at home Not on file 01/23/2024 Want [...] of Treatment Not on file Insurance AETNA [facility]
--- OUTSIDE RECORDS SUMMARY | 2025-02-15 10:27 | XMS_ITS | Encounter Summary ---
Author Organization [employer] ([place], [place], [place], [place]) Address [address] [place] [address] Care Team Providers Care Outdoor Adventure Leader Name Role Phone Unavailable Primary Care Provider Unavailabl e Encounter Details Date Type Department Care Team (Late st Contact Info) Description 01/23/2024 Outside Orders [facility] Central Scheduling [address] [place] [address] Eugenia Rocha APRN [address] [place] [address] ADD (attention deficit disorder) without [...] Date Osman rded Speak language other than Estonian at home Not on file 01/23/2024 Want [...]
--- OUTSIDE RECORDS SUMMARY | 2025-02-15 10:27 | XMS_ITS | Referral Summary ---
Author Organization [employer] ([place], [place], [place], [place]) Address [address] [place] [address] Care Team Providers Care Manufacturing Technology Professor Name Role Phone Unavailable Primary Care Provider [...] Date Osman rded Speak language other than Guamanian at home Not on file 01/23/2024 Want [...] Treatment Not on file Insurance [employer]NA [facility]
[2025-02-15 10:35] LABS: Hematocrit 45.4 % (37.0-47.0); Hemoglobin 15.1 g/dL (12.2-16.2); Immature Granulocytes % 0.3 %; Mean Corpuscular HGB Conc 33.3 g/dL (31.8-35.4); Mean Corpuscular Hemoglobin 30.8 pg (27.0-31.2); Mean Corpuscular Volume 92.5 fl (81-99); Nucleated Red Blood Cells % 0 %; Platelet Count 198 K/mm3 (142-424); Red Blood Count 4.91 M/mm3 (4.20-5.40); Red Cell Distribution Width-SD 45.1 fL; White Blood Count 7.6 K/mm3 (4.8-10.8)
[2025-02-15 10:38] LABS: Urine Pregnancy, HCG Qual. Negative (Negative)
[2025-02-15 10:39] LABS: Chloride 106 mmol/L (98-107); Potassium 4.2 mmoL/L (3.5-5.1); Sodium 138 mmol/L (136-145)
[2025-02-15 10:42] LABS: Anion Gap 8.2 mEq/L (5-15); Blood Urea Nitrogen 11 mg/dl (7-17); Calcium 8.6 mg/dl (8.4-10.2); Carbon Dioxide 28 mmol/L (22.0-30.0); Creatinine Clearance Estimated 127 mL/min (50-200); Creatinine,Serum 0.80 mg/dl (0.52-1.04); Estimated Glomerular Filt Rate 79 ml/min (>60); GFR (African American) 96 ML/MIN (>60); Glucose 87 mg/dl (74-100)
== END 2025-02-15 23:59 | disposition home or self-care (01) ==
LOC: PREOP 09:54
PROVIDERS: PCP Family Medicine; Visit Provider Surgery
DX: Z01.812 Encounter for preprocedural laboratory examination (principal)
CPT/HCPCS: 80048; 81025; 85025

== ENCOUNTER 2025-03-03 06:11 | Day surgery (SDC) | payer OTHER, SELFPAY ==
[2025-02-15 11:21] VITALS: BMI 33.5
[2025-03-03] VITALS (16 sets, daily range): BP systolic 123–180; BP diastolic 71–111; PULSE 46–73; RESP 16–18; TEMP 36.4–36.6; O2SAT 94–99; BMI 33.5
[2025-03-03 06:33] LABS: Urine Pregnancy, HCG Qual. Negative (Negative)
[2025-03-03] MEDS: 0.9 % SODIUM CHLORIDE 1000ML 1,000 ML 25 ML IV (06:48)
--- NOTE | 2025-03-03 07:07 | EXP.ANES.CKL ---
[facility] Disclaimer: The information contained in this section may have been updated after the patient was seen, as this information can be updated by other users. Medical History HTN (hypertension) Bronchitis Sinusitis Recurrent major depression resistant to treatment Posttraumatic stress disorder Allergic rhinitis Encounter for preprocedural respiratory examination Surgical History History of endometrial ablation Hx laparoscopic cholecystectomy History of History of tubal ligation Hx of tonsillectomy Family History Other Diabetes Hypertension Social History (Updated 03/03/25 @ 06:32 by Jane Andres RN) Smoking Status: Current every day smoker tobacco type: e-cigarettes alcohol intake: never substance use type: denies use current occupational status: employed Travel in the last 8 weeks?: None housing: house caffeine: No Have you lived/traveled outside US in past 30 days?: No Contact w/someone who lives/traveled outside US past 30 days?: No Exposure to someone with infectious disease in past 14 days?: No Do you have a fever (greater than 100.4 F or 38 C)?: No Have you tested positive for COVID-19?: No Exposed to someone with COVID-19 in past 14 days?: No Do you have a sore throat?: No Do you have a cough?: No Do you have any weakness?: No Are you experiencing any nausea/vomitting?: No Do you have any diarrhea?: No Are you experiencing any unusual bleeding?: No Do you have any muscle aches/pain?: No Do you have any abdominal pain?: No Are you experiencing loss of taste or smell?: No [facility] Anesthesia Checklist Patient Identification Patient Identification: Arm Band Structural Data Admitted From: Home Planned Operative Procedure/s: Excision of Left Breast Lesion/Cyst Consent for Planned Operative Procedure(s) Verified: Yes Verified Documents: Surgical Consent and History and Physical NPO Status Verified Time NPO: 00:00 Additional verifications Anesthesia Reactions: No Hx Blood Transfusions: No Blood Transfusion Reaction: No Airway Assessment Mallampati Score:: Class II C-Spine Mobility Assessed: Yes TMJ Mobility Assessed: Yes Dentition: Good Dentition Neurological Assessment Level of Consciousness: Awake, Alert and Appropriate Anesthesia Plan Anesthesia Risk discussed: Yes Anesthesia Plan: Verified ASA Class: II Anesthesia Type: General
[2025-03-03] MEDS: CLINDAMYCIN PHOSPHATE/D5W 900 MG/50 ML PIGGYBACK 50 MG (07:20)
[2025-03-03] MEDS: LIDOCAINE 1% 20ML MDV 20 ML (07:26)
--- NOTE | 2025-03-03 07:43 | P.OP_ITS ---
Date of procedure: 03/03/25 Pre-op Diagnosis:: Left breast lesion (5 mm cystic lesion along the lateral left breast) Post-op Diagnosis:: Same Procedure performed:: Excision of left breast lesion (5 mm cystic lateral left breast lesion) Surgeon:: Joshua Meek MD ENTRY LEVEL ACCOUNT REPRESENTATIVE:: Fernando Enriquez Anesthesia: local and LMA Estimated blood loss (mL): 5 Operative findings:: Lesion excised in toto Operative note:: After informed consent was obtained the patient was taken to the operating room and placed in the supine position. General anesthesia with laryngeal mask airway was achieved. Her left lateral breast region was prepped and draped in a sterile fashion. After infiltration with local anesthetic an elliptical incision was made around the palpable lesion. A shallow subcutaneous cystic lesion was excised in toto and passed off for pathologic evaluation. Electrocautery was utilized to achieve hemostasis. Skin was reapproximated with interrupted 4-0 Monocryl in a subcuticular manner. Dressings were applied and the patient was transferred to recovery in stable condition after removal of her laryngeal mask airway. Condition: stable Disposition: PACU Specimens:: Left breast cystic lesion Complications:: No immediate
--- NOTE | 2025-03-03 07:50 | EXP.ANES.I ---
[facility] Anesthesia Record Part I Anesthesia Record I Intake, IV Amount: 600 Hydration: Adequate Estimated blood loss (mL): 5 Urine output (mL): 0 Blood Products used (#): none Blood Pressure: 152/83 SaO2: 95 Pulse Rate: 46 Airway Patency: Patent Respiratory Rate: 16 Temperature: 97.5 F Patient is:: Drowsy and Stable Stable to PACU at:: 07:45
[2025-03-03] MEDS: MORPHINE 2MG/ML SYRINGE 2 MG IV ×2 (08:04→08:14)
--- NOTE | 2025-03-03 08:12 | ECG_ITS ---
APPROVED REPORT Exam: Resting ECG HR:66 bpm ECG Measurements Heart Rate 66 AXES [place] 166 P 50 QRSd 96 QRS 25 QT 438 T 15 QTc 451 Conclusion SINUS RHYTHM NORMAL ECG UNCONFIRMED REPORT Electronically signed by : Lg Olmos MD 03/03/2025 11:05:51
--- NOTE | 2025-03-03 08:33 | XR_ITS ---
FINAL REPORT CLINICAL HISTORY: Chest pain radiating to back, post general left breast lesion/cyst COMPARISON: 02/09/2018 FINDINGS: A single frontal view of the chest was obtained. There are patchy perihilar opacities favored represent atelectasis given reduced lung volumes. There is no evidence of effusion or pneumothorax. Mediastinum is unremarkable. Heart size is normal. IMPRESSION: Patchy perihilar opacities favor atelectasis over developing pneumonia. Reviewed, Interpreted and Dictated by Franco Almodovar MD Transcribed by Leydi Gomes Authenticated and [facility]
[2025-03-03] MEDS: HYDROMORPHONE 2MG/ML SYRINGE 0.5 MG IV ×2 (08:36→08:56)
[2025-03-03] MEDS: HYDRALAZINE 20MG/ML VIAL 5 MG IV (08:44)
--- NOTE | 2025-03-03 10:34 | SUR.PHASEI ---
0804: Pt complains of pain in the chest rating at a 5-6. Morphine given per PRN PACU orders. 167/78 last bp 0812: Pt still reports chest pain with no change of rating. Morphine given per PRN PACU orders. Order obtained for 12 Lead EKG. 0815: EKG NSR. Rufus Sanabria CRNA at bedside. This nurse noticed erythema around IV site. IV removed and restarted in LAC. Pt still reports 5-6 chest pain. See orders from anesthesia. 0833: Chest xray ordered and shot. 0836: Dilaudid 0.5mg administered. Rufus Sanabria SAMPLE MAKER remains at bedside. 0844: Hydralizine 5mg administered per order. BP at this time 180/71 0856: Pain is being reported by pt to be a 5. Dilaudid 0.5mg administered. 0900: Pt reports pain is better. Now a 3 out of 10. BP 178/98. R. Feeback at bedside. Verbal order given to wait for CXR results and if bp continues to trend down and chest pain subsides will consider d/c. 0921: Chest pain returns at a 5-6. Rufus Sanabria at bedside. BP trends back up 167/111. CXR resulted: Atelectasis 0936: Decision made per anesthesia team and Dr. Meek to d/c from Postoperative care and see pt to ER for cardiac workup. 0955: Report given at bedside to Danika Romero RN.
--- NOTE | 2025-03-03 10:35 | P.PNANES_ITS ---
[facility] Anesthesia Record Part II Anesthesia Record Part II Discharge Time: 09:05 Destination: Surgical Day Care (OP Surgery) PACU nurse assessment reviewed?: Yes Patient Condition:: Good Anesthesia Complications:: None Swallowing reflex intact?: Yes Airway Patency: Patent Cyanosis?: No Blood Pressure: 176/98 SaO2: 98 Respiratory Rate: 18 Pulse Rate: 69 Temperature: 97.6 F Mental Status: Alert & Oriented Pain level:: 3 Nausea and/or vomitting:: None Intake, IV Amount: 0 Hydration: Adequate Comments:: Pt c/o chest pain in pacu. EKG showed NSR. CXR ordered showing favor atelectasis over developing pneumonia. HTN treated in PACU with Hydralazine. Chest pain treated with IV narcotics. Pt states relief of pain and was transported to post op. Chest pain reoccurred in post op. Discussed options with the pt and decision made to go to the ER for further evaluation.
== END 2025-03-03 09:55 | disposition home or self-care (01) ==
PROVIDERS: PCP Family Medicine; Visit Provider Surgery
PROC: (CPT 11400; principal; 2025-03-03 07:30)
DX: N60.82 Other benign mammary dysplasias of left breast (principal); F17.290 Nicotine dependence, other tobacco product, uncomplicated; Z88.0 Allergy status to penicillin; Z88.5 Allergy status to narcotic agent
CPT/HCPCS: 11400; 71045; 81025; 93005; 96374; J0360; J0736; J1100; J1171; J1200; J2003; J2250; J2270; J2405; J2704; J3010; J7030

== ENCOUNTER 2025-03-03 10:05 | Emergency (ER) | payer OTHER, SELFPAY ==
--- NOTE | 2025-03-03 10:06 | ECG_ITS ---
APPROVED REPORT Exam: Resting ECG HR:75 bpm ECG Measurements Heart Rate 75 AXES [place] 164 P 40 QRSd 92 QRS 24 QT 409 T 17 QTc 437 Conclusion SINUS RHYTHM POSSIBLE ANTERIOR MYOCARDIAL INFARCTION , OF INDETERMINATE AGE [30 ms Q WAVE IN V3/V4, OR R < 0.2 mV IN V4] ABNORMAL ECG Electronically signed by : MARVIN LEARY, 03/06/2025 08:37:15
[2025-03-03 10:11] VITALS: BP 158/100; PULSE 78; RESP 16; TEMP 37.4; O2SAT 98; BMI 34.2
--- NOTE | 2025-03-03 10:15 | CT_ITS ---
FINAL REPORT TECHNIQUE: Thin section axial CT with contrast with multiplanar reconstruction This study was performed with techniques to keep radiation doses as low as reasonably achievable, (ALARA). Individualized dose reduction techniques using automated exposure control or adjustment of mA and/or kV according to the patient''s size were employed. CLINICAL HISTORY: chest pain to back recent intubation COMPARISON: none FINDINGS: Pulmonary vessels enhance in normal fashion without evidence of embolism. Thoracic aorta shows no dissection or aneurysm. Moderate bilateral lower lobe atelectasis. No evidence of pneumothorax. No pleural fluid collection. There is no significant pleural effusion. There is no significant pericardial effusion. No mediastinal or hilar adenopathy is present. IMPRESSION: No evidence of pulmonary embolism No aortic dissection. Moderate bilateral lower lobe atelectasis. Reviewed, Interpreted and Dictated by Franco Almodovar MD Transcribed by Leydi Gomes Authenticated and [facility]
--- OUTSIDE RECORDS SUMMARY | 2025-03-03 10:19 | XMS_ITS | Referral Summary ---
Author Organization [employer] ([place], [place], [place], [place]) Address [address] [place] [address] Care Team Providers Care Mainspring Barrel Assembly Cleaner Name Role Phone Unavailable Primary Care Provider [...] Date Osman rded Speak language other than Spanish at home Not on file 01/23/2024 Want [...] of Treatment Not on file Insurance AETNA [facility]
--- OUTSIDE RECORDS SUMMARY | 2025-03-03 10:19 | XMS_ITS | Encounter Summary ---
Author Organization [employer] ([place], [place], [place], [place]) Address [address] [place] [address] Care Team Providers Care Type Cutter Name Role Phone Unavailable Primary Care Provider Unavailabl e Encounter Details Date Type Department Care Team (Late st Contact Info) Description 01/23/2024 Outside Orders [facility] Central Scheduling [address] [place] [address] Eugenia Rocha APRN [address] [place] [address] ADD (attention deficit disorder) without [...] Date Osman rded Speak language other than Frisian at home Not on file 01/23/2024 Want [...]
--- OUTSIDE RECORDS SUMMARY | 2025-03-03 10:19 | XMS_ITS | Clinical Summary ---
Author Organization [employer] ([place], [place], [place], [place]) Address [address] [place] [address] Care Team Providers Care Manpower Development Specialist Manager Name Role Phone Unavailable Primary Care [...] Date Osman rded Speak language other than Puerto [place]ican at home Not on file 01/23/2024 Want [...] Not on file Insurance AETNA [facility]
[2025-03-03 10:32] VITALS: BP 142/87; PULSE 62; RESP 14; O2SAT 97
--- NOTE | 2025-03-03 10:35 | ED_ITS ---
<Statement entered by Pradip Vo MD - 03/03/25 15:57> I was consulted by the GIUSEPPE, and we discussed the complexity of the problems being addressed. I approved the treatment and management plan for this patient's care in the emergency department, thus performing a substantive portion of the medical decision making. Pradip Vo MD Discharge Plan Disposition Patient Disposition: Home, Self-Care Prescriptions Prescriptions: No Action amlodipine 2.5 mg tablet 2.5 mg PO DAILY Patient Comments: TAKE ONE TABLET BY MOUTH EVERY DAY metronidazole 500 mg tablet 500 mg PO BID 5 Days Qty: 10 3RF cholecalciferol (vitamin D3) 50 mcg (2,000 unit) capsule 50 mcg PO DAILY Qty: 30 2RF lisinopril-hydrochlorothiazide 20-12.5 mg tablet 1 tab PO DAILY Patient Comments: TAKE TWO TABLETS BY MOUTH EVERY DAY Referrals Follow up/Referrals: Lenard Tolbert MD [Primary Care Provider, Medical] - See instructions Activity Restrictions/Add. Instructions Additional Instructions/Restrictions: Increase fluids and rest. Take meds as directed. If you have any other problems or concerns please return to the ED immediately. Clinical Impressions Clinical Impression: Chest pain Instructions Patient Instructions: DI for Atypical Chest Pain Print Language Print Language: Jamaican Discharge ED Provider: Pradip Vo [facility] <Pradip Vo MD - Last Filed: 03/03/25 11:05> General Chief Complaint: Chest Pain Stated Complaint: cp Time Seen by Provider: 03/03/25 10:09 Related Data Home Medications ?Medication ?Instructions ?Recorded ?Confirmed lisinopril 20 1 tab PO DAILY 02/18/2402/14/25 mg-hydrochlorothiazide 12.5 mg tablet amlodipine 2.5 mg tablet 2.5 mg PO DAILY 01/17/25 Previous Rx's ?Medication ?Instructions ?Recorded metronidazole 500 mg tablet 500 mg PO BID 5 days #10 t abs 01/17/25 cholecalciferol (vitamin D3) 50 50 mcg PO DAILY #30 ca ps 01/26/25 mcg (2,000 unit) capsule Allergies Allergy/AdvReac Type Severity Reaction Status Date / Time hydrocodone (HYDROCODONE) Allergy Unknown Hives Verified 03/03/25 06:41 nut - unspecified (From NUTS Allergy Unknown I-HIVES Verified 03/03/25 06:41 (FOOD/DRUG)) Penicillins (PENICILLINS) Allergy Unknown Hives Verified 03/03/25 06:41 From NUTS (FOOD/DRUG) Allergy Unknown I-HIVES Uncoded 02/02/25 09:01 <Kelly Nieto (ED), GRAVITY PROSPECTING OBSERVER - Last Filed: 03/03/25 15:51> General Mode of Arrival: Ambulatory Source of Information: Patient Description of Symptoms (Recalled from ER Triage Doc. by RN): Patient presents to ED from PACU s/p breast biopsy with cyst removal. Patient reports midsternal chest pain that radiates to the center of the back. Describes pain as shooting and becomes sharp. History of Present Illness HPI narrative: 39-year-old female presents to the ED today for complaint of sharp, center of her chest pain. She says that it feels like an arrow going through to her back. She started with this pain when she come out of surgery this morning. She went to surgery to have a breast biopsy and a cyst removal this morning. She came from the PACU. She says that this comes on out of nowhere and feels more like a spasm and feels like it spreads out and is really sharp and tingling lasts for a few minutes and goes away. She says it is a 6 out of 10 on the pain scale. She denies any shortness of breath or nausea. She is unsure if she was intubated during her surgery. She says that she was given morphine and Dilaudid for this pain and it stopped for 15-minute. And then restarted. She says the last time she had any medication was about 8 AM. She was also given blood pressure medicine to help her blood pressure come down. She does take hydrochlorothiazide on a normal basis. [facility] <Pradip Vo MD - Last Filed: 03/03/25 11:05> [facility] Medical History (Updated 03/03/25 @ 14:06 by Kelly Nieto (ED), GRAVITY PROSPECTING OBSERVER) HTN (hypertension) Bronchitis Sinusitis Recurrent major depression resistant to treatment Posttraumatic stress disorder Allergic rhinitis Encounter for preprocedural respiratory examination Surgical History History of endometrial ablation Hx laparoscopic cholecystectomy History of History of tubal ligation Hx of tonsillectomy Family History Other Diabetes Hypertension Social History Smoking Status: Current every day smoker tobacco type: e-cigarettes alcohol intake: never substance use type: denies use current occupational status: employed Travel in the last 8 weeks?: None housing: house caffeine: No Have you lived/traveled outside US in past 30 days?: No Contact w/someone who lives/traveled outside US past 30 days?: No Exposure to someone with infectious disease in past 14 days?: No Do you have a fever (greater than 100.4 F or 38 C)?: No Have you tested positive for COVID-19?: No Exposed to someone with COVID-19 in past 14 days?: No Do you have a sore throat?: No Do you have a cough?: No Do you have any weakness?: No Do you have any diarrhea?: No Are you experiencing any unusual bleeding?: No Do you have any muscle aches/pain?: No Do you have any abdominal pain?: No Are you experiencing loss of taste or smell?: No <Kelly Nieto (ED), GRAVITY PROSPECTING OBSERVER - Last Filed: 03/03/25 15:51> [facility] Disclaimer: The information contained in this section may have been updated after the patient was seen, as this information can be updated by other users. Other Medical History Have you received the Flu Vaccine for this season: No Have you received the Pneumonia Vaccine: No <Kelly Nieto (ED), GRAVITY PROSPECTING OBSERVER - Last Filed: 03/03/25 15:51> ROS Obtained: Yes Systems reviewed as appropriate & no additional complaints except as documented Constitutional Constitutional: Reports as per HPI Physical Exam <Kelly Nieto (ED), GRAVITY PROSPECTING OBSERVER - Last Filed: 03/03/25 15:51> General General appearance: alert and in no apparent distress Head Head exam: normocephalic Eye Eye exam: Present PERRL and EOMI ENT ENT exam: Present normal oropharynx and mucous membranes moist Neck Neck exam: Present full ROM and trachea midline Respiratory Respiratory exam: Present normal lung sounds bilaterally Cardiovascular Cardiovascular exam: Present regular rate, normal rhythm, normal heart sounds, +S1 and +S2 Abdominal Exam Abdominal exam: Present soft and normal bowel sounds Extremities Exam Extremities exam: Present full ROM and normal capillary refill Back Exam Back exam: Present normal inspection Neurological Exam Neurological exam: Present alert and oriented X3 Skin Skin exam: Present warm, dry and intact HEART Score <Pradip Vo MD - Last Filed: 03/03/25 11:05> HEART Score HEART Score: 0 <Kelly Nieto (ED), GRAVITY PROSPECTING OBSERVER - Last Filed: 03/03/25 15:51> HEART Score HEART Score assessment performed?: Yes History (anamnesis): Slightly suspicious ECG: Normal Age: <45 years Risk factors: No known risk factors Troponin: </= normal limit HEART Score: 0 Critical Care <Kelly Nieto (ED), GRAVITY PROSPECTING OBSERVER - Last Filed: 03/03/25 15:51> Critical Care Time Critical Care Time: No Medical Decision Making <Pradip Vo MD - Last Filed: 03/03/25 11:05> Vital Signs Vital Signs: 03/03/25 10:11 03/03/25 10:11 03/03/25 10:32 Temperature 99.3 F 99.3 F Temperature Source Oral Pulse Rate 78 62 Pulse Rate [Right] 78 Respiratory Rate 16 16 14 Blood Pressure 158/100 H 142/87 H Blood Pressure [Right Arm] 158/100 H Blood Pressure Mean Blood Pressure Mean [Right Arm] 119 02 Sat by Pulse Oximetry 98 98 97 Oxygen Delivery Method Room Air 03/03/25 11:30 03/03/25 11:30 03/03/25 12:00 Temperature Temperature Source Pulse Rate 58 L 75 Pulse Rate [Right] Respiratory Rate 22 17 Blood Pressure 153/102 H 167/81 H Blood Pressure [Right Arm] Blood Pressure Mean 119 Blood Pressure Mean [Right Arm] 02 Sat by Pulse Oximetry 97 97 Oxygen Delivery Method 03/03/25 12:30 03/03/25 14:07 Temperature 98.1 F Temperature Source Pulse Rate 60 63 Pulse Rate [Right] Respiratory Rate 12 18 Blood Pressure 143/96 H 145/90 H Blood Pressure [Right Arm] Blood Pressure Mean Blood Pressure Mean [Right Arm] 02 Sat by Pulse Oximetry 97 Oxygen Delivery Method Lab Data Labs: Lab Results 03/03/25 10:30: WBC 7.0, RBC 5.07, Hgb 15.7, Hct 46.7, MCV 92.1, MCH 31.0, MCHC 33.6, RDW 13.0, Plt Count 318, MPV 10.1, Neut % (Auto) 90.3 H, Lymph % (Auto) 7.2 L, Warren % (Auto) 1.7, Eos % (Auto) 0.3, Baso % (Auto) 0.4, Neut # (Auto) 6.3, Lymph # (Auto) 0.5 L, Warren # (Auto) 0.1, Eos # (Auto) 0.0, Baso # (Auto) 0.0, Total Counted 100, Neutrophils % (Manual) 92 H, Lymphocytes % (Manual) 6 L, Monocytes % (Manual) 2, Platelet Estimate Normal, RBC Morphology Normal, Sodium 141, Potassium 4.1, Chloride 102, Carbon Dioxide 28, Anion Gap 15.1 H, BUN 9, Creatinine 0.70, Estimated Creat Clear 148, Estimated GFR 93, Est GFR ( Amer) 112, Glucose 98, Calcium 9.5, Magnesium 2.0, Total Bilirubin 1.5 H, AST 203 H, ALT 73, Alkaline Phosphatase 55, Troponin I < 0.01, Total Protein 8.3 H, Albumin 4.8, Globulin 3.5 H, Albumin/Globulin Ratio 1.4, Lipase 99 03/03/25 13:25: Troponin I < 0.01 03/03/25 10:30 03/03/25 10:30 Response Orders (Tests/Meds): ED MEDICATIONS Discontinued Medications Generic Name Dose Route Start Last Admin Trade Name Freq PRN Reason Stop Dose Admin Iopamidol 80 ml 03/03/25 10:56 03/03/25 10:58 Iopamidol-370 (76%);100ml Bottle IV 03/03/25 10:57 80 ml ONCE ONE Administration Sodium Chloride 10 ml 03/03/25 10:56 03/03/25 10:58 Sodium Chloride 0.9% 10ml Syr (Rad Only) IV 03/03/25 10:57 10 ml ONCE ONE Administration Sodium Chloride 50 ml 03/03/25 10:56 03/03/25 10:57 0.9 % Sodium Chloride 50 Ml Vial IV 03/03/25 10:57 50 ml ONCE ONE Administration ORDERS Category Date Time Status CT angio chest - dissection Stat Cat Scan 03/03/25 10:15 Completed CBC [Complete Blood Count Auto Diff] Stat Lab 03/03/25 10:30 Completed Comprehensive Metabolic Panel Stat Lab 03/03/25 10:30 Completed Lipase Stat Lab 03/03/25 10:30 Completed Magnesium Stat Lab 03/03/25 10:30 Completed Trop I [Troponin I] Stat Lab 03/03/25 10:30 Completed Troponin I Q3H Lab 03/03/25 13:25 Completed ECG Data Tracing #1: ECG Narrative: Independently interpreted by me rate 75, rhythm is regular, axis is normal, no ST elevation in anatomical contiguous leads, QTc 437. <Kelly Nieto (ED), GRAVITY PROSPECTING OBSERVER - Last Filed: 03/03/25 15:51> Jamal Inquiry Pt receiving controlled substance: No Jamal was queried for this patient: No Vital Signs Vital Signs: 03/03/25 10:11 03/03/25 10:11 03/03/25 10:32 Temperature 99.3 F 99.3 F Temperature Source Oral Pulse Rate 78 62 Pulse Rate [Right] 78 Respiratory Rate 16 16 14 Blood Pressure 158/100 H 142/87 H Blood Pressure [Right Arm] 158/100 H Blood Pressure Mean Blood Pressure Mean [Right Arm] 119 02 Sat by Pulse Oximetry 98 98 97 Oxygen Delivery Method Room Air 03/03/25 11:30 03/03/25 11:30 03/03/25 12:00 Temperature Temperature Source Pulse Rate 58 L 75 Pulse Rate [Right] Respiratory Rate 22 17 Blood Pressure 153/102 H 167/81 H Blood Pressure [Right Arm] Blood Pressure Mean 119 Blood Pressure Mean [Right Arm] 02 Sat by Pulse Oximetry 97 97 Oxygen Delivery Method 03/03/25 12:30 03/03/25 14:07 Temperature 98.1 F Temperature Source Pulse Rate 60 63 Pulse Rate [Right] Respiratory Rate 12 18 Blood Pressure 143/96 H 145/90 H Blood Pressure [Right Arm] Blood Pressure Mean Blood Pressure Mean [Right Arm] 02 Sat by Pulse Oximetry 97 Oxygen Delivery Method Lab Data Labs: Lab Results 03/03/25 10:30: WBC 7.0, RBC 5.07, Hgb 15.7, Hct 46.7, MCV 92.1, MCH 31.0, MCHC 33.6, RDW 13.0, Plt Count 318, MPV 10.1, Neut % (Auto) 90.3 H, Lymph % (Auto) 7.2 L, Warren % (Auto) 1.7, Eos % (Auto) 0.3, Baso % (Auto) 0.4, Neut # (Auto) 6.3, Lymph # (Auto) 0.5 L, Warren # (Auto) 0.1, Eos # (Auto) 0.0, Baso # (Auto) 0.0, Total Counted 100, Neutrophils % (Manual) 92 H, Lymphocytes % (Manual) 6 L, Monocytes % (Manual) 2, Platelet Estimate Normal, RBC Morphology Normal, Sodium 141, Potassium 4.1, Chloride 102, Carbon Dioxide 28, Anion Gap 15.1 H, BUN 9, Creatinine 0.70, Estimated Creat Clear 148, Estimated GFR 93, Est GFR ( Amer) 112, Glucose 98, Calcium 9.5, Magnesium 2.0, Total Bilirubin 1.5 H, AST 203 H, ALT 73, Alkaline Phosphatase 55, Troponin I < 0.01, Total Protein 8.3 H, Albumin 4.8, Globulin 3.5 H, Albumin/Globulin Ratio 1.4, Lipase 99 03/03/25 13:25: Troponin I < 0.01 Response Orders (Tests/Meds): ED MEDICATIONS Discontinued Medications Generic Name Dose Route Start Last Admin Trade Name Freq PRN Reason Stop Dose Admin Iopamidol 80 ml 03/03/25 10:56 03/03/25 10:58 Iopamidol-370 (76%);100ml Bottle IV 03/03/25 10:57 80 ml ONCE ONE Administration Sodium Chloride 10 ml 03/03/25 10:56 03/03/25 10:58 Sodium Chloride 0.9% 10ml Syr (Rad Only) IV 03/03/25 10:57 10 ml ONCE ONE Administration Sodium Chloride 50 ml 03/03/25 10:56 03/03/25 10:57 0.9 % Sodium Chloride 50 Ml Vial IV 03/03/25 10:57 50 ml ONCE ONE Administration ORDERS Category Date Time Status CT angio chest - dissection Stat Cat Scan 03/03/25 10:15 Completed CBC [Complete Blood Count Auto Diff] Stat Lab 03/03/25 10:30 Completed Comprehensive Metabolic Panel Stat Lab 03/03/25 10:30 Completed Lipase Stat Lab 03/03/25 10:30 Completed Magnesium Stat Lab 03/03/25 10:30 Completed Trop I [Troponin I] Stat Lab 03/03/25 10:30 Completed Troponin I Q3H Lab 03/03/25 13:25 Completed MDM Narrative Medical Decision Narrative: patient is a 39-year-old female presenting to the emergency department for evaluation of chest pain. Patient is hemodynamically stable and nontoxic- appearing upon arrival, afebrile. Differential diagnosis includes dissection, esophageal rupture, angina, ACS, among others. Workup will be conducted with hematologic labs, specific imaging. Initial inventions include crystalloid bolus, analgesics. Troponins were negative x 2. Other labs were nonactionable. Patient's CT scan was negative for dissection. Patient's pain has significantly improved. She is ready to go home. Patient is safe for discharge home.
[2025-03-03 10:42] LABS: Hematocrit 46.7 % (37.0-47.0); Hemoglobin 15.7 g/dL (12.2-16.2); Immature Granulocytes % 0.1 %; Mean Corpuscular HGB Conc 33.6 g/dL (31.8-35.4); Mean Corpuscular Hemoglobin 31.0 pg (27.0-31.2); Mean Corpuscular Volume 92.1 fl (81-99); Nucleated Red Blood Cells % 0 %; Platelet Count 318 K/mm3 (142-424); Red Blood Count 5.07 M/mm3 (4.20-5.40); Red Cell Distribution Width-SD 43.5 fL; White Blood Count 7.0 K/mm3 (4.8-10.8)
[2025-03-03 10:45] LABS: Albumin Level 4.8 g/dl (3.5-5.0); Chloride 102 mmol/L (98-107); Potassium 4.1 mmoL/L (3.5-5.1); Sodium 141 mmol/L (136-145)
[2025-03-03 10:47] LABS: Alanine Aminotransferase 73 U/L (12-78); Albumin/Globulin Ratio 1.4 (1.1-1.8); Alkaline Phosphatase 55 U/L (38-126); Anion Gap 15.1 mEq/L (5-15); Aspartate Amino Transferase 203 U/L (14-36); Bilirubin,Total 1.5 mg/dl (0.2-1.3); Blood Urea Nitrogen 9 mg/dl (7-17); Carbon Dioxide 28 mmol/L (22.0-30.0); Creatinine Clearance Estimated 148 mL/min (50-200); Creatinine,Serum 0.70 mg/dl (0.52-1.04); Estimated Glomerular Filt Rate 93 ml/min (>60); GFR (African American) 112 ML/MIN (>60); Globulin 3.5 g/dL (1.3-3.2); Total Protein,Serum 8.3 g/dl (6.3-8.2)
[2025-03-03 10:48] LABS: Calcium 9.5 mg/dl (8.4-10.2); Glucose 98 mg/dl (74-100); Lipase 99 U/L (23-300); Magnesium 2.0 mg/dl (1.6-2.3)
[2025-03-03] MEDS: 0.9 % SODIUM CHLORIDE 50 ML VIAL IV (10:57)
[2025-03-03] MEDS: IOPAMIDOL-370 (76%);100ML BOTTLE 80 ML IV (10:58)
[2025-03-03] MEDS: SODIUM CHLORIDE 0.9% 10ML SYR (RAD ONLY) 10 ML IV (10:58)
[2025-03-03 11:04] LABS: Troponin I < 0.01 ng/ml (0.00-0.034)
[2025-03-03 11:16] LABS: Total Cells Counted 100
[2025-03-03 11:17] LABS: RBC Morphology Normal
[2025-03-03 11:30] VITALS: BP 153/102; PULSE 58; RESP 22; O2SAT 97
[2025-03-03 12:00] VITALS: BP 167/81; PULSE 75; RESP 17; O2SAT 97
[2025-03-03 12:30] VITALS: BP 143/96; PULSE 60; RESP 12; O2SAT 97
[2025-03-03 14:02] LABS: Troponin I < 0.01 ng/ml (0.00-0.034)
[2025-03-03 14:07] VITALS: BP 145/90; PULSE 63; RESP 18; TEMP 36.7; O2SAT 97
== END 2025-03-03 14:08 | disposition home or self-care (01) ==
PROVIDERS: Nurse Practitioner; Emergency Provider Emergency Medicine; PCP Family Medicine
DX: R07.9 Chest pain, unspecified (principal); F17.290 Nicotine dependence, other tobacco product, uncomplicated; I10 Essential (primary) hypertension
CPT/HCPCS: 71275; 80053; 83690; 83735; 84484; 85007; 85025; 93005; 99284; 99285; Q9967

== ENCOUNTER 2025-03-05 11:58 | Emergency (ER) | payer OTHER, SELFPAY ==
[2025-03-05] VITALS (8 sets, daily range): BP systolic 130–170; BP diastolic 82–100; PULSE 51–66; RESP 16–20; TEMP 36.9; O2SAT 96–98; BMI 34.5
--- OUTSIDE RECORDS SUMMARY | 2025-03-05 12:08 | XMS_ITS | Encounter Summary ---
Author Organization [employer] ([place], [place], [place], [place]) Address [address] [place] [address] Care Team Providers Care Supervisor Facepiece Line Name Role Phone Unavailable Primary Care Provider Unavailabl e Encounter Details Date Type Department Care Team (Late st Contact Info) Description 01/23/2024 Outside Orders Central Scheduling [address] [place] [address] Eugenia Rocha APRN [address] [place] [address] ADD (attention deficit disorder) without [...] Date Osman rded Speak language other than Syriac at home Not on file 01/23/2024 Want [...]
--- OUTSIDE RECORDS SUMMARY | 2025-03-05 12:08 | XMS_ITS | Referral Summary ---
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
--- OUTSIDE RECORDS SUMMARY | 2025-03-05 12:08 | XMS_ITS | Clinical Summary ---
Author Organization [employer] ([place], [place], [place], [place]) Address [address] [place] [address] Care Team Providers Care Director Of Scout Work Name Role Phone Unavailable Primary Care Provider [...] Date Osman rded Speak language other than Turkish at home Not on file 01/23/2024 Want [...] of Treatment Not on file Insurance [employer] [facility]
--- NOTE | 2025-03-05 12:13 | XR_ITS ---
PROCEDURE INFORMATION: Exam: XR Chest Exam date and time: 03/05/2025 12:27 PM Age: 39 years old Clinical indication: Pain; Chest pressure; Additional info: Chest discomfort TECHNIQUE: Imaging protocol: Radiologic exam of the chest. Views: 1 view. COMPARISON: 1. CT ANGIO CHEST 03/03/2025 10:59 AM 2. Prior chest x-ray dated March 03, 2025. 3. Prior chest x-ray dated August 15, 2022. FINDINGS: Lungs: Faint areas of increased density within the left hilar region corresponds to previously seen small calcified hilar lymph nodes. No airspace consolidation suspicious for a pneumonia. Interval decrease in previously seen areas of patchy perihilar atelectatic change and atelectatic change at the left lung base. No CHF. Pleural spaces: No large pleural effusion or pneumothorax. Heart/Mediastinum: Heart size is within normal limits. The mediastinal contours are smooth. Bones/joints: Mild dextroscoliosis. IMPRESSION: 1. No acute findings within the chest. 2. Interval decrease in previously seen areas of patchy perihilar atelectatic change and atelectatic change at the left lung base.
--- NOTE | 2025-03-05 12:14 | [facility].EDGENADL ---
Discharge Plan Disposition Patient Disposition: Home, Self-Care Prescriptions Prescriptions: No Action amlodipine 2.5 mg tablet 2.5 mg PO DAILY Patient Comments: TAKE ONE TABLET BY MOUTH EVERY DAY metronidazole 500 mg tablet 500 mg PO BID 5 Days Qty: 10 3RF cholecalciferol (vitamin D3) 50 mcg (2,000 unit) capsule 50 mcg PO DAILY Qty: 30 2RF lisinopril-hydrochlorothiazide 20-12.5 mg tablet 1 tab PO DAILY Patient Comments: TAKE TWO TABLETS BY MOUTH EVERY DAY Referrals Follow up/Referrals: Lenard Tolbert MD [Primary Care Provider, Medical] - See instructions Activity Restrictions/Add. Instructions Additional Instructions/Restrictions: Follow-up with primary care doctor. Please return to the ER with any new, concerning, worsening symptoms Clinical Impressions Clinical Impression: Brain fog Chest pain Qualifiers: Chest pain type: unspecified Qualified Code(s): R07.9 - Chest pain, unspecified Headache Qualifiers: Headache type: unspecified Headache chronicity pattern: acute headache Intractability: not intractable Qualified Code(s): R51.9 - Headache, unspecified Print Language Print Language: Italian Discharge ED Provider: Johnnie Sol General Adult HPI General Chief complaint: Dizziness Stated complaint: Cyst Removal 03/03/25 Feeling Unwell Time Seen by Provider: 03/05/25 12:02 Mode of Arrival: Ambulatory Source of Information: Patient Limitations: No Limitations History of Present Illness HPI narrative: This is a 39-year-old female with a past medical history of hypertension and recent left breast mass removal/biopsy that was performed 4 days ago who presents with shortness of breath and headache. States that she has been feeling foggy all day and out of it. States that this is her first day back at work after her breast surgery and she feels like she is drunk but has not drink any alcohol or use any drugs. States that after her surgery, she ultimately presented to the emergency department for workup of chest discomfort which was largely negative. States that she felt well yesterday however since going back to work today, has had the above symptoms as well as a generalized headache and the occasional sensation that she cannot catch her breath. States that this has led to panic. Related Data Home Medications ?Medication ?Instructions ?Recorded ?Confirmed lisinopril 20 1 tab PO DAILY 09/04/24 09/18/25 mg-hydrochlorothiazide 12.5 mg tablet amlodipine 2.5 mg tablet 2.5 mg PO DAILY 01/17/25 03/03/25 Previous Rx's ?Medication ?Instructions ?Recorded metronidazole 500 mg tablet 500 mg PO BID 5 days #10 tabs 01/17/25 cholecalciferol (vitamin D3) 50 50 mcg PO DAILY #30 caps 01/26/25 mcg (2,000 unit) capsule Allergies Allergy/AdvReac Type Severity Reaction Status Date / Time hydrocodone (HYDROCODONE) Allergy Unknown Hives Verified 03/03/25 06:41 nut - unspecified (From NUTS Allergy Unknown I-HIVES Verified 03/03/25 06:41 (FOOD/DRUG)) Penicillins (PENICILLINS) Allergy Unknown Hives Verified 03/03/25 06:41 From NUTS (FOOD/DRUG) Allergy Unknown I-HIVES Uncoded 02/02/25 09:01 [facility] Disclaimer: The information contained in this section may have been updated after the patient was seen, as this information can be updated by other users. Medical History (Updated 03/05/25 @ 14:42 by Johnnie Sol MD) HTN (hypertension) Bronchitis Sinusitis Recurrent major depression resistant to treatment Posttraumatic stress disorder Allergic rhinitis Encounter for preprocedural respiratory examination Surgical History History of endometrial ablation Hx laparoscopic cholecystectomy History of History of tubal ligation Hx of tonsillectomy Family History Other Diabetes Hypertension Social History Smoking Status: Current every day smoker tobacco type: e-cigarettes alcohol intake: never substance use type: denies use current occupational status: employed Travel in the last 8 weeks?: None housing: house caffeine: No Have you lived/traveled outside [place] in past 30 days?: No Contact w/someone who lives/traveled outside US past 30 days?: No Exposure to someone with infectious disease in past 14 days?: No Do you have a fever (greater than 100.4 F or 38 C)?: No Have you tested positive for COVID-19?: No Exposed to someone with COVID-19 in past 14 days?: No Do you have a sore throat?: No Do you have a cough?: No Do you have any weakness?: No Do you have any diarrhea?: No Are you experiencing any unusual bleeding?: No Do you have any muscle aches/pain?: No Do you have any abdominal pain?: No Are you experiencing loss of taste or smell?: No Other Medical History Have you received the Flu Vaccine for this season: No Have you received the Pneumonia Vaccine: No ROS Obtained: Yes All systems reviewed & no additional complaints except as documented Physical Exam General General appearance: alert, in no apparent distress and anxious Comment: Tearful Head Head exam: atraumatic Eye Eye exam: Present normal appearance, PERRL and EOMI Neck Neck exam: Present normal inspection and full ROM Chest Chest inspection: Present symmetric chest wall rise Respiratory Respiratory exam: Present normal lung sounds bilaterally; Absent respiratory distress Cardiovascular Cardiovascular exam: Present regular rate and normal rhythm Abdominal Exam Abdominal exam: Present soft; Absent distention Extremities Exam Extremities exam: Present normal inspection Neurological Exam Neurological exam: Present alert and oriented X3 Psychiatric Psychiatric exam: Present normal affect and normal mood Skin Skin exam: Present warm and dry Medical Decision Making Medical Records Medical records reviewed: Yes I reviewed the patient's medical records. Screening: Per USPSTF and CDC recommendations, given the prevalence of disease in our region, it is our hospital?s policy to screen for HIV and viral Hepatitis for all patients aged 18 and over and those with ongoing risk factors. MR Comment: Emergency department note from 03/03/2025 notable for presentation to the emergency department comfort after her breast surgery. Troponins negative x 2. CTA negative. Patient ultimately discharged. Jamal Inquiry Pt receiving controlled substance: No Vital Signs: 03/05/25 12:14 03/05/25 12:20 03/05/25 12:41 Temperature 98.4 F Temperature Source Oral Pulse Rate 66 52 L Pulse Rate [Right] 53 L Respiratory Rate 16 18 18 Blood Pressure 142/92 H 166/99 H Blood Pressure [Right Arm] 170/100 H Blood Pressure Mean 108 121 Blood Pressure Mean [Right Arm] 123 02 Sat by Pulse Oximetry 96 97 96 Oxygen Delivery Method Room Air 03/05/25 13:01 03/05/25 13:20 03/05/25 13:40 Temperature Temperature Source Pulse Rate 53 L 51 L 55 L Pulse Rate [Right] Respiratory Rate 18 20 18 Blood Pressure 143/96 H 142/98 H 156/95 H Blood Pressure [Right Arm] Blood Pressure Mean 111 118 119 Blood Pressure Mean [Right Arm] 02 Sat by Pulse Oximetry 98 97 98 Oxygen Delivery Method 03/05/25 14:19 Temperature Temperature Source Pulse Rate 51 L Pulse Rate [Right] Respiratory Rate 18 Blood Pressure 133/86 Blood Pressure [Right Arm] Blood Pressure Mean 105 Blood Pressure Mean [Right Arm] 02 Sat by Pulse Oximetry 97 Oxygen Delivery Method Lab Data Lab Results 03/05/25 12:13: WBC 8.8 D, RBC 4.50, Hgb 13.9, Hct 40.6, MCV 90.2, MCH 30.9, MCHC 34.2, RDW 12.8, Plt Count 325, MPV 10.3, Neut % (Auto) 66.3, Lymph % (Auto) 23.4, [place] % (Auto) 7.9, Eos % (Auto) 1.2, Baso % (Auto) 0.9, Neut # (Auto) 5.8, Lymph # (Auto) 2.1, [place] # (Auto) 0.7, Eos # (Auto) 0.1, Baso # (Auto) 0.1, D-Dimer 0.64 H, Sodium 141, Potassium 3.6, Chloride 103, Carbon Dioxide 27, Anion Gap 14.6, BUN 11, Creatinine 0.80, Estimated Creat Clear 131, Estimated GFR 79, Est GFR ( Amer) 96, Glucose 92, Calcium 9.3, Total Bilirubin 0.6, AST 30 D, ALT 48 D, Alkaline Phosphatase 51, Troponin I < 0.01, Total Protein 7.6, Albumin 4.6, Globulin 3.0, Albumin/Globulin Ratio 1.5, Serum HCG, Qual Negative 03/05/25 12:13 03/05/25 12:13 Orders (Tests/Meds): ED MEDICATIONS Discontinued Medications Generic Name Dose Route Start Last Admin Trade Name Freq PRN Reason Stop Dose Admin Acetaminophen 1,000 mg 03/05/25 12:13 03/05/25 12:38 Acetaminophen 500mg Tab PO 03/05/25 12:14 1,000 mg ONCE ONE Administration Hydroxyzine Pamoate 25 mg 03/05/25 12:13 03/05/25 12:38 Hydroxyzine Pamoate 25mg Capsule PO 03/05/25 12:14 25 mg ONCE ONE Administration Ibuprofen 400 mg 03/05/25 12:13 03/05/25 12:38 Ibuprofen 400 Mg Tablet PO 03/05/25 12:14 400 mg ONCE ONE Administration Iopamidol 70 ml 03/05/25 13:57 03/05/25 13:58 Iopamidol-370 (76%);100ml Bottle IV 03/05/25 13:58 70 ml ONCE ONE Administration Sodium Chloride 10 ml 03/05/25 13:57 03/05/25 13:58 Sodium Chloride 0.9% 10ml Syr (Rad Only) IV 03/05/25 13:58 10 ml ONCE ONE Administration Sodium Chloride 50 ml 03/05/25 13:57 03/05/25 13:58 0.9 % Sodium Chloride 50 Ml Vial IV 03/05/25 13:58 50 ml ONCE ONE Administration ORDERS Category Date Time Status CT head/brain wo con Stat Cat Scan 03/05/25 12:20 Completed CTA Chest [CT angio chest PE protocol] Stat Cat Scan 03/05/25 13:44 Completed Chest XR -- portable [XR chest portable] Stat Exams 03/05/25 12:13 Completed CBC w/Auto Diff [Complete Blood Count Auto Diff] Stat Lab 03/05/25 12:13 Completed CMP [Comprehensive Metabolic Panel] Stat Lab 03/05/25 12:13 Completed D-Dimer Stat Lab 03/05/25 12:13 Completed HCG Qualitative, Serum Stat Lab 03/05/25 12:13 Completed Troponin I Stat Lab 03/05/25 12:13 Completed ECG Data Tracing #1: I reviewed this ECG and interpreted as documented below: Sinus bradycardia at a rate of 46, QTc 399, normal axis, no STEMI Medical Decision Narrative: In summary, this 39-year-old female presents to the emergency department today with anxiousness, chest discomfort, headache, brain fogginess. Patient's comorbidities include hypertension and recent left breast surgery which is not at goal therapy and may be exacerbating symptoms/increase patient's risk of morbidity and mortality. On initial evaluation patient is hemodynamically stable, hypertensive with systolic blood pressure in the 170s, nontachycardic, satting 96% on room air. Afebrile. Very anxious and tearful. Differential diagnosis includes but is not limited to hypertensive emergency, panic attack, ACS, pulmonary embolism, aortic dissection, electrolyte abnormality, hypertensive encephalopathy, intracranial hemorrhage. Based on these concerns, I ordered CBC, CMP, troponin, D-dimer, EKG, chest x-ray, CT head. Considered CT PE, however patient is at low risk for PE by Wells criteria. Will evaluate with D-dimer for. ECG personally interpreted as noted above. Patient received Tylenol and ibuprofen for headache and hydroxyzine for anxiety For treatment. Will reevaluate blood pressure after this as I believe her hypertension is likely exacerbated by her anxiousness. She took her home blood pressure medicine just prior to arrival after going home afterward. Did not take it first thing this morning like she usually does. Labs reviewed demonstrate unremarkable CBC, D-dimer of 0.64, undetectable troponin, nonactionable CMP. XR independently interpreted by me demonstrates no acute cardiopulmonary pathology. CT imaging independently interpreted by me demonstrates no acute intracranial pathology. Of note, radiology report does note Small 10 mm expansile lytic osseous lesion is present within the lower right temporoparietal region just anterior and superior to the right petrous bone. Small lesion has a thin sclerotic rim. This more likely is indolent or benign. Follow-up nonemergent MRI should be considered for further characterization. - will discuss this with patient and have her follow up w/ PCP. On reevaluation, I discussed that CT PE was not indicated at this point as pulmonary embolism was ruled out by years criteria, however patient still has a significant degree of concern for pulmonary embolism. Considering her concern and the subjective nature of PE as most likely diagnosis criterion in YEARS, will order CTPE. Of note, her blood pressure had significantly improved with a systolic blood pressure in the 140s. CT PE was independently interpreted by me, revealing no acute pulmonary embolism. Radiology report notes that there is some subtle areas of nonspecific chronic last opacity. Patient is not having any infectious symptoms. Discussed this with patient however believe the findings are nonspecific and no intervention is needed for this at this time. On reassessment blood pressure had again improved to 133/87. She still reported global head pressure and was offered migraine cocktail/IV fluids, especially given that she stated that she became lightheaded whenever she stood up at bedside however she declined. States that she preferred to go home and rest. This was felt to be reasonable as her workup today has been largely unremarkable. She is to follow-up with primary care doctor. Patient was in agreement with this plan and ultimately discharged in stable condition. Critical Care Critical Care Time Critical Care Time: No
--- NOTE | 2025-03-05 12:15 | ECG_ITS ---
APPROVED REPORT Exam: Resting ECG HR:46 bpm ECG Measurements Heart Rate 46 AXES IN 148 P 30 QRSd 93 QRS 38 QT 439 T 19 QTc 399 Conclusion SINUS BRADYCARDIA BORDERLINE ECG UNCONFIRMED REPORT Electronically signed by : Johnnie Sol, 03/05/2025 15:48:28
--- NOTE | 2025-03-05 12:20 | CT_ITS ---
PROCEDURE INFORMATION: Exam: CT Head Without Contrast Exam date and time: 03/05/2025 12:32 PM Age: 39 years old Clinical indication: Pain; Headache; Additional info: ROSAS, HTN TECHNIQUE: Imaging protocol: Computed tomography of the head without contrast. Radiation optimization: All CT scans at this facility use at least one of these dose optimization techniques: automated exposure control; mA and/or kV adjustment per patient size (includes targeted exams where dose is matched to clinical indication); or iterative reconstruction. COMPARISON: No relevant prior studies available. FINDINGS: Brain: Luna-white matter differentiation is well-maintained. No intraparenchymal hemorrhage. No subdural or epidural hematoma or fluid collection. No evidence of a large territorial infarct. No large mass or mass effect. Cerebral ventricles: Ventricular and sulcal pattern is within normal limits. The ventricles are midline in position. No mass effect or midline shift. Paranasal sinuses: Mild mucosal thickening along the ethmoid air cells. Maxillary sinuses and sphenoid air cells are clear. Frontal sinuses are non pneumatized. Mastoid air cells: Mastoid air cells are clear. Bones: The calvarium is intact. No depressed or displaced skull fracture. Mild arthritic changes present at the craniocervical junction. Subtle 10 mm expansile lytic osseous cortical lesion is present within the lower right temporoparietal region just anterior and superior to the right petrous bone. Small lesion maintains a thin sclerotic rim. Soft tissues: Overlying soft tissues are unremarkable. IMPRESSION: 1. No acute findings within the brain. Ventricular and sulcal pattern is within normal limits. No mass effect or midline shift. No intraparenchymal hemorrhage. No subdural or epidural hematoma or fluid collection. 2. Small 10 mm expansile lytic osseous lesion is present within the lower right temporoparietal region just anterior and superior to the right petrous bone. Small lesion has a thin sclerotic rim. This more likely is indolent or benign. Follow-up nonemergent MRI should be considered for further characterization.
[2025-03-05 12:26] LABS: Hematocrit 40.6 % (37.0-47.0); Hemoglobin 13.9 g/dL (12.2-16.2); Immature Granulocytes % 0.3 %; Mean Corpuscular HGB Conc 34.2 g/dL (31.8-35.4); Mean Corpuscular Hemoglobin 30.9 pg (27.0-31.2); Mean Corpuscular Volume 90.2 fl (81-99); Nucleated Red Blood Cells % 0 %; Platelet Count 325 K/mm3 (142-424); Red Blood Count 4.50 M/mm3 (4.20-5.40); Red Cell Distribution Width-SD 42.3 fL; White Blood Count 8.8 K/mm3 (4.8-10.8)
[2025-03-05] MEDS: ACETAMINOPHEN 500MG TAB 1000 MG PO (12:38)
[2025-03-05] MEDS: IBUPROFEN 400 MG TABLET PO (12:38)
[2025-03-05 12:42] LABS: Albumin Level 4.6 g/dl (3.5-5.0); Chloride 103 mmol/L (98-107); Potassium 3.6 mmoL/L (3.5-5.1); Sodium 141 mmol/L (136-145)
[2025-03-05 12:44] LABS: Blood Urea Nitrogen 11 mg/dl (7-17); Creatinine Clearance Estimated 131 mL/min (50-200); Creatinine,Serum 0.80 mg/dl (0.52-1.04); Estimated Glomerular Filt Rate 79 ml/min (>60); GFR (African American) 96 ML/MIN (>60)
[2025-03-05 12:45] LABS: Alanine Aminotransferase 48 U/L (12-78); Albumin/Globulin Ratio 1.5 (1.1-1.8); Alkaline Phosphatase 51 U/L (38-126); Anion Gap 14.6 mEq/L (5-15); Aspartate Amino Transferase 30 U/L (14-36); Bilirubin,Total 0.6 mg/dl (0.2-1.3); Calcium 9.3 mg/dl (8.4-10.2); Carbon Dioxide 27 mmol/L (22.0-30.0); Globulin 3.0 g/dL (1.3-3.2); Glucose 92 mg/dl (74-100); Total Protein,Serum 7.6 g/dl (6.3-8.2)
[2025-03-05 12:50] LABS: D-Dimer 0.64 ug/mL (0.0-0.5)
[2025-03-05 13:01] LABS: HCG Qualitative, Serum Negative (Negative)
[2025-03-05 13:02] LABS: Troponin I < 0.01 ng/ml (0.00-0.034)
--- NOTE | 2025-03-05 13:44 | CT_ITS ---
PROCEDURE INFORMATION: Exam: CTA Chest With Contrast Exam date and time: 03/05/2025 1:59 PM Age: 39 years old Clinical indication: Shortness of breath; Additional info: SOB, pos d-dimer TECHNIQUE: Imaging protocol: Computed tomographic angiography of the chest with contrast. Exam focused on the arteries. 3D rendering (Not supervised by radiologist): MIP and/or 3D reconstructed images were created by the technologist. Radiation optimization: All CT scans at this facility use at least one of these dose optimization techniques: automated exposure control; mA and/or kV adjustment per patient size (includes targeted exams where dose is matched to clinical indication); or iterative reconstruction. Contrast material: ISOVUE; Contrast volume: 70 ml; Contrast route: INTRAVENOUS (IV); COMPARISON: CT ANGIO CHEST 03/03/2025 10:59 AM FINDINGS: Limitations: Respiratory motion. Pulmonary arteries: Main pulmonary artery is normal in caliber. No CT evidence for central or segmental pulmonary embolism. Evaluation for subsegmental pulmonary emboli is limited by respiratory motion. Aorta: Normal caliber of the ascending and descending thoracic aorta. No evidence for dissection. Origins of the great vessels are patent. Thyroid: Thyroid gland appears heterogeneous. Area of decreased density along the lower pole of the right lobe of the thyroid may correspond to artifact. Trachea: Central airways are clear. No bronchiectasis. Lungs: Patchy ground-glass airspace opacity is present throughout the right and left lung. Respiratory motion does slightly limit evaluation. No focal airspace consolidation suspicious for a pneumonia. No suspicious pulmonary nodule or mass within the right and left lung. Previously seen areas of atelectatic change within the right and left lower lobe have resolved. Pleural spaces: No pleural effusion. No pneumothorax. Heart: Heart size is upper limits for normal. No pericardial effusion. Lymph nodes: There are no enlarged or suspicious mediastinal lymph nodes. No mediastinal mass or fluid collection. Calcified left hilar lymph nodes are redemonstrated and appear unchanged. No new hilar mass or suspicious lymphadenopathy. Liver: Mild decreased density throughout the liver in keeping with mild fatty infiltration. Gallbladder and biliary ducts: Status post prior cholecystectomy. Intraperitoneal space: Remainder of the visualized structures within the upper abdomen are unremarkable. Bones/joints: There are no suspicious lytic or sclerotic bone lesions. Mild dextroscoliosis. Multilevel disc space narrowing and degenerative endplate change throughout the mid and lower thoracic spine and involving the upper lumbar spine. No acute fracture. Soft tissues: Unremarkable. IMPRESSION: 1. No CT evidence for central or segmental pulmonary embolism. Respiratory motion limits evaluation for smaller peripheral subsegmental pulmonary embolism. 2. Areas of mild patchy ground-glass airspace opacity are present within the right and left lung. Findings are somewhat nonspecific. There are a few associated areas of lucency which may correspond to areas of air trapping. No focal dense airspace consolidation. Previously seen areas of atelectatic change within the right and left lower lobe have resolved. No suspicious pulmonary nodule or mass. No pleural effusion or pneumothorax.
[2025-03-05] MEDS: 0.9 % SODIUM CHLORIDE 50 ML VIAL IV (13:58)
[2025-03-05] MEDS: SODIUM CHLORIDE 0.9% 10ML SYR (RAD ONLY) 10 ML IV (13:58)
[2025-03-05] MEDS: IOPAMIDOL-370 (76%);100ML BOTTLE 70 ML IV (13:58)
== END 2025-03-05 15:04 | disposition home or self-care (01) ==
PROVIDERS: Emergency Provider Student in an Organized Health Care Education/Training Program; PCP Family Medicine
DX: R07.89 Other chest pain (principal); R06.02 Shortness of breath; R51.9 Headache, unspecified; I10 Essential (primary) hypertension; F17.200 Nicotine dependence, unspecified, uncomplicated
CPT/HCPCS: 70450; 71045; 71275; 80053; 84484; 84703; 85025; 85378; 93005; 99284; 99285; Q9967